=== PATIENT | female | born 1950 | race Two or more races ===

== ENCOUNTER 2016-10-13 12:01 | Emergency (ER) | payer OTHER ==
[2016-10-13 12:28] VITALS: BP 156/79; PULSE 59; TEMP 98; BMI 28.3
[2016-10-13] MEDS ORDERED: KETOROLAC TROMETHAMINE 60 MG/2 ML VIAL ONE (14:20)
[2016-10-13] MEDS: KETOROLAC TROMETHAMINE 60 MG/2 ML VIAL IM ONE (14:23)
--- NOTE | 2016-10-13 14:24 | PDOC ---
History of Present Illness - General Chief Complaint: Back Pain Stated Complaint: BACK PAIN Time Seen by Provider: 10/13/16 13:45 History Source: Patient Exam Limitations: No Limitations - History of Present Illness Initial Comments: 10/13/16 14:24 65 YR FEMALE WITH HISTORY of lower back pain and left side sciatica. Pt states 8 days ago had cortisone injection which helped for 2 days then pain came back. no saddle anesthesia no urine or bowel incontinence. Pt is able to urineate and have BM no distress. no abd pain or fever,. pt has pain to left buttock radiates to leg. Pt taking percocet and naprosyn at home with no relief. Pt states she has a small dog that she is cleaning up after often bending over. Occurred: reports: last week Severity: reports: moderate Pain Location: reports: back Past History - Past Medical History Allergies/Adverse Reactions: Allergies Allergy/AdvReac Type Severity Reaction Status Date / Time No Known Allergies Allergy Verified 10/13/16 12:24 Home Medications: Ambulatory Orders Cyclobenzaprine HCl [Flexeril 10 mg] 5 mg PO TID PRN #21 tablet 10/13/16 Losartan Potassium 25 mg PO DAILY 10/13/16 Methylprednisolone [Medrol Dose Mukesh] 4 mg PO ASDIR #21 tablet 10/13/16 Naproxen [Naprosyn -] 500 mg PO BID 10/13/16 Oxycodone HCl/Acetaminophen [Percocet 5-325 mg Tablet] 1 - 2 tab PO Q4H HTN: Yes Hypercholesterolemia: Yes Suicide Attempt (Hx): No Other medical history: herniated disc with left sciatica - Surgical History Cholecystectomy: Yes - Psycho/Social/Smoking Cessation Hx Anxiety: No Suicidal Ideation: No Smoking History: Never smoked Hx Alcohol Use: No Drug/Substance Use Hx: No Substance Use Type: None Trauma Specific PMHX - Complaint Specific PMHX Arthritis: No Back Injury: No Neck Injury: No Hx Sacro Iliac Joint Dysfunction: No Review of Systems - Review of Systems Able to Perform ROS?: No Is the patient limited Sinhala proficient: No Constitutional: No: Symptoms Reported HEENTM: No: Symptoms Reported Respiratory: No: Symptoms reported Cardiac (ROS): No: Symptoms Reported ABD/GI: No: Symptoms Reported : No: Symptoms Reported Musculoskeletal: Yes: See HPI, Back Pain *Physical Exam - Vital Signs Last Vital Signs Temp Pulse Resp BP Pulse Ox 98 F 59 L 16 156/79 99 10/13/16 12:25 10/13/16 12:25 10/13/16 12:25 10/13/16 12:25 10/13/16 12:25 - Physical Exam General Appearance: Yes: Nourished, Appropriately Dressed HEENT: positive: EOMI, SUSU, Normal ENT Inspection, TMs Normal, Pharynx Normal Neck: positive: Supple. negative: Tender lateral, Tender midline Respiratory/Chest: positive: Lungs Clear, Normal Breath Sounds Cardiovascular: positive: Regular Rhythm, Regular Rate Gastrointestinal/Abdominal: positive: Normal Bowel Sounds, Soft. negative: Tender Rectal Exam: positive: deferred Musculoskeletal: positive: Normal Inspection, Muscle Spasm (left lower lumbar spine paraspinal muscle), Other (SLR left leg pain at 45 degrees, nv intact sensation decreased to left lateral calf ). negative: CVA Tenderness, CVA Tenderness (R), CVA Tenderness (L), Decreased Range of Motion, Vertebral Tenderness Extremity: positive: Normal Capillary Refill, Normal Inspection, Normal Range of Motion Medical Decision Making - Medical Decision Making 10/13/16 14:27 cc: acute on chornic sciatica , low back pain no red flag signs will give toradol dc with medrol dose pack and flexeril, pt has failed narcotic and nsaids at home pt has no history of DM or renal insufficency *DC/Admit/Observation/Transfer Diagnosis at time of Disposition: Sciatica Qualifiers: Laterality: left Qualified Code(s): M54.32 - Sciatica, left side - Discharge Dispostion Disposition: HOME Condition at time of disposition: Good - Prescriptions Prescriptions: Cyclobenzaprine HCl [Flexeril 10 mg] 5 mg PO TID PRN #21 tablet PRN Reason: Muscle Spasms Methylprednisolone [Medrol Dose Mukesh] 4 mg PO ASDIR #21 tablet - Referrals Referrals: Sahil Mcgovern MD [Staff Physician] - - Patient Instructions Additional Instructions: take the muscle relaxant as prescribed do not drive, drink alcohol or operate machinery while taking flexeril take the medrol dose pack (steroid for pain and inflamation) as directed you can start the pack today follow with orthopedist or your doctor for follow up no heavy lifting or bending RETURN IF ANY NUMBNESS TO GROIN, UNABLE TO URINATE OR HAVE BOWEL MOVEMENT OR ANY INCONTINENCE OF BOWEL OR BLADDER
== END 2016-10-13 14:35 | disposition home or self-care (01) ==
LOC: JERFT 12:01
PROC: 3E0233Z Introduction of Anti-inflammatory into Muscle, Percutaneous Approach (ICD-10-PCS; principal; 2016-10-13)
DX: M54.32 Sciatica, left side (principal); I10 Essential (primary) hypertension; E78.00 Pure hypercholesterolemia, unspecified
CPT/HCPCS: 99281-25

== ENCOUNTER 2016-11-27 11:31 | Emergency (ER) | payer OTHER ==
[2016-11-27 11:39] VITALS: TEMP 97.8; BMI 27.4
[2016-11-27] MEDS ORDERED: SODIUM CHLORIDE 1,000 ML IV ONE (12:38)
[2016-11-27] MEDS ORDERED: METOCLOPRAMIDE HCL INJECTION 10 MG/2 ML VIAL IVPUSH ONE (12:38)
[2016-11-27] MEDS ORDERED: diazePAM 5 MG TABLET PO ONE (12:38)
--- NOTE | 2016-11-27 12:43 | PDOC ---
History of Present Illness - General History Source: Patient Exam Limitations: No Limitations - History of Present Illness Initial Comments: 11/27/16 13:41 The patient is a 66 year old female with a significant past medical history of chronic lower back pain, HTN, HCL, arthritis, and left leg sciatica, who presents to the ER with intermittent dizziness for one week. Patient states she started to feel dizziness one week ago while walking. She went to her PCP five days ago and was given antivertigo medication, Meclazine. Patient reports she stopped taking the Meclazine a few days ago after taking 3 pills because it had not resolved her symptoms. She states she lies down to relieve her symptoms. Patient says she has associated nausea. Patient says she has not eaten anything today. Patient says she had similar symptoms last year, resolved by Meclazine. Denies any headache, vision changes, neck pain, speech problems, back pain, focal weakness or numbness Denies hematuria, dysuria Denies abdominal pain, vomiting, diarrhea Denies changes in hearing, tinnitus Denies fever, chills, cough or recent uri symptoms PCP: In [facility] <Trinity Amado - Last Filed: 11/27/16 13:41> <El Trujillo - Last Filed: 11/27/16 14:40> - General Chief Complaint: Lightheaded Stated Complaint: PCP/LABS Time Seen by Provider: 11/27/16 11:48 Past History <Trinity Amado - Last Filed: 11/27/16 13:41> - Past Medical History HTN: Yes Hypercholesterolemia: Yes Suicide Attempt (Hx): No Other medical history: Vertigo - Surgical History Abdominal Surgery: No Appendectomy: No Cardiac Surgery: No Cholecystectomy: Yes Gastric Stapling: No GI Surgery: No Lung Surgery: No Neurologic Surgery: No - Psycho/Social/Smoking Cessation Hx Anxiety: No Suicidal Ideation: No Smoking History: Never smoked Hx Alcohol Use: No Drug/Substance Use Hx: No Substance Use Type: None <El Trujillo - Last Filed: 11/27/16 14:40> - Past Medical History Allergies/Adverse Reactions: Allergies Allergy/AdvReac Type Severity Reaction Status Date / Time No Known Allergies Allergy Verified 11/27/16 11:39 Home Medications: Ambulatory Orders Cyclobenzaprine HCl [Flexeril 10 mg] 5 mg PO TID PRN #21 tablet 10/13/16 Losartan Potassium 25 mg PO DAILY 10/13/16 Methylprednisolone [Medrol Dose Mukesh] 4 mg PO ASDIR #21 tablet 10/13/16 Naproxen [Naprosyn -] 500 mg PO BID 10/13/16 Oxycodone HCl/Acetaminophen [Percocet 5-325 mg Tablet] 1 - 2 tab PO Q4H Amlodipine Besylate 5 mg PO DAILY 11/27/16 Review of Systems - Review of Systems Able to Perform ROS?: Yes Comments:: 11/27/16 13:42 CONSTITUTIONAL: No reported: Fever, Chills, Diaphoresis, Generalized Weakness, Malaise, Loss of Appetite HEENT: No reported: Rhinorrhea, Nasal Congestion, Throat Pain, Throat Swelling, Difficulty Swallowing, Mouth Swelling, Ear Pain, Eye Pain, Visual Changes CARDIOVASCULAR: No reported: Chest Pain, Syncope, Palpitations, Irregular Heart Rate, Lightheadedness, Peripheral Edema RESPIRATORY: No reported: Cough, Shortness of Breath, SOB with Exertion, Orthopnea, Wheezing , Stridor, Hemoptysis GASTROINTESTINAL: No reported: Abdominal pain, Abdominal Distension, Nausea, Vomiting, Diarrhea, Constipation, Melena, Hematochezia GENITOURINARY: No reported: Dysuria, Frequency, Urgency, Hesitancy, Flank Pain, Genital Pain MUSCULOSKELETAL: No reported: Myalgia, Arthralgia, Joint Swelling, Back pain, Neck Pain SKIN: No reported: Rash, Itching, Pallor HEMEATOLOGIC/IMMUNOLOGIC: No reported: Easy Bleeding, Easy Bruising, Lymphadenopathy, Frequent infections ENDOCRINE: No reported: Unexplained Weight Gain, Unexplained Weight Loss, Heat Intolerance , Cold Intolerance NEUROLOGIC: Reported: (+) Vertigo, (+) dizziness No reported: Headache, Focal Weakness, Paresthesias, Lightheadedness, Unsteady Gait, Seizure, Mental Status Changes, Incontinence PSYCHIATRIC: No reported: Anxiety, Depression <Uts,Trinity - Last Filed: 11/27/16 13:41> *Physical Exam - Vital Signs Last Vital Signs Temp Pulse Resp BP Pulse Ox 97.8 F 57 L 20 136/71 99 11/27/16 11:36 11/27/16 11:36 11/27/16 11:36 11/27/16 11:36 11/27/16 11:36 - Physical Exam Comments: 11/27/16 13:42 GENERAL: The patient is awake, alert, and fully oriented, Nontoxic - in no acute distress. HEAD: Normocephalic, atraumatic. EYES: extraocular movements intact, sclera anicteric, conjunctiva clear. extinguishing orizontal nystagmus ENT: Normal voice, Moist mucous membranes. NECK: Normal range of motion, supple LUNGS: Breath sounds equal, clear to auscultation bilaterally. No wheezes, no rhonchi, no rales. HEART: Regular rate and rhythm, without murmur, rub or gallop. ABDOMEN: Soft, nontender, normoactive bowel sounds. No guarding, no rebound.No CVA tenderness EXTREMITIES: Normal range of motion, no edema. No clubbing or cyanosis. No cords, erythema, or tenderness. PSYCH: Normal mood, normal affect. SKIN: Warm, Dry, normal turgor NEURO: Mental status: The patient is oriented x3. Cranial nerves: Cranial nerves II through XII are intact Motor: The upper extremities are 5 over 5 in all muscle groups. The lower extremities are 5 over 5 in all muscle groups. Negative pronator drift Sensation: Sensation is intact to light touch throughout. romberg negative Cerebellar: Jxubdm-aqukuj-reup is normal in both upper extremities. Heel-knee- lopez is normal in both lower extremities. rapid alternating movements are normal. Reflexes: 2+ and symmetric in the upper and lower extremities. Gait: Normal. Heel and toe walking are normal. Tandem gait is normal. <Uts,Trinity - Last Filed: 11/27/16 13:41> - Vital Signs Last Vital Signs Temp Pulse Resp BP Pulse Ox 97.8 F 57 L 20 136/71 99 11/27/16 11:36 11/27/16 11:36 11/27/16 11:36 11/27/16 11:36 11/27/16 11:36 <El Trujillo - Last Filed: 11/27/16 14:40> Heart Score/ECG Review - ECG Impressions Comment:: 11/27/16 12:40 Twelve-lead EKG was performed and reviewed by me. There is normal sinus rhythm with a rate of 59 The intervals are normal. There is normal R wave progression There are no ST or T wave abnormalities. Impression: sinus bradycardia <Ronnie,El - Last Filed: 11/27/16 14:40> ED Treatment Course - LABORATORY CBC & Chemistry Diagram: 11/27/16 13:15 11/27/16 13:15 - ADDITIONAL ORDERS Additional order review: 11/27/16 13:15 RBC 4.78 MCV 83.0 MCHC 32.8 RDW 14.1 MPV 9.7 Neutrophils % 76.3 Lymphocytes % 14.9 Monocytes % 7.3 Eosinophils % 0.7 Basophils % 0.8 <Uts,Trinity - Last Filed: 11/27/16 13:41> - LABORATORY CBC & Chemistry Diagram: 11/27/16 13:15 11/27/16 13:15 <El Trujillo - Last Filed: 11/27/16 14:40> Medical Decision Making - Medical Decision Making 11/27/16 12:41 66y F hx of htn, hl, RA, sent to the ED by urgent care for evalution of persistent dizziness, pt endorses mild vertigo intermittently throughotut day, usually improves if she lays down. no headache, palpitations, neck pain, back pain, numbness, tingling weakness, dysarthria, vision changes. pts exam unremarkable including normal neuro exam and normal cerebellar exam suspect bppv will give valium as pt has not been improving with meclizine will give fluids for hydration will ck basic labs to r/o anemia, metabolic dernagement ekg to screen for arrythmia will reassess A portion of this note was documented by scribe services under my direction. I have reviewed the details of the note, within reason, and agree with the documentation with the following case summary and management plan written by me 11/27/16 14:38 pt feeling improved lbas reviewed and are unremarkble will dc the pt with pmd fu returnp recautions were discussed I discussed the physical exam findings, ancillary test results and final diagnoses with the patient. I answered all of the patient's questions. The patient was satisfied with the care received and felt comfortable with the discharge plan and treatment plan. The patient will call their primary care physician within 24 hours to arrange follow-up and will return to the Emergency Department with any new, persistent or worsening symptoms. <El Trujillo - Last Filed: 11/27/16 14:40> *DC/Admit/Observation/Transfer - Attestations Scribe Attestion: 11/27/16 13:43 Documentation prepared by Trinity Amado, acting as medical/surgery registered nurse for El Trujillo MD. <Trinity Amado - Last Filed: 11/27/16 13:41> - Discharge Dispostion Admit: No <El Trujillo - Last Filed: 11/27/16 14:40> Diagnosis at time of Disposition: Vertigo - Discharge Dispostion Disposition: HOME Condition at time of disposition: Improved - Referrals Referrals: Jabari Mendoza [Primary Care Provider] - - Patient Instructions Printed Discharge Instructions: DI for Vertigo Additional Instructions: Return to the emergency department immediately with ANY new, persistent or worsening symptoms. Make sure that you're staying well-hydrated. Take your meclizine if your feel any dizziness. You MUST call and follow up with your doctor tomorrow for further evaluation of your symptoms. Results were discussed with you. Please make sure your doctor reviews the results of your emergency evaluation. If you had any xrays during your visit, it was read preliminarily by myself, a Radiologist will review it and if there are any additional findings we will call you. Print Language: ANDORRAN
[2016-11-27 13:25] LABS: BASOPHIL 0.8 % (0-2.0); EOSINOPHIL 0.7 % (0-4.5); MCH 27.2 pg (25.7-33.7); MCHC 32.8 g/dl (32.0-36.0); MEAN PLT VOLUME 9.7 fl (7.5-11.1); NEUTROPHILS 76.3 % (42.8-82.8); PLATELET COUNT 258 K/MM3 (134-434); RDW 14.1 % (11.6-15.6); WHITE BLOOD COUNT 12.5 K/mm3 (4.0-10.0)
[2016-11-27] MEDS ORDERED: METOCLOPRAMIDE HCL INJECTION 10 MG/2 ML VIAL ONE (13:25)
[2016-11-27] MEDS ORDERED: diazePAM 5 MG TABLET ONE (13:25)
[2016-11-27 13:56] LABS: ANION GAP 9 (8-16); BILIRUBIN,TOTAL 0.4 mg/dL (0.2-1.0); CALCIUM 9.8 mg/dL (8.5-10.1); CO2 27 mmol/L (21-32); GLUCOSE,RANDOM 95 mg/dL (74-106); SGOT/AST 23 U/L (15-37); SGPT/ALT 33 U/L (12-78); TOT PROT 7.4 g/dl (6.4-8.2)
[2016-11-27 13:57] LABS: ALK PHOS 60 U/L (45-117)
[2016-11-27 14:05] LABS: URINE APPEARANCE CLEAR; URINE BILIRUBIN NEGATIVE (NEGATIVE); URINE BLOOD NEGATIVE (NEGATIVE); URINE COLOR YELLOW; URINE GLUCOSE (UA) NEGATIVE (NEGATIVE); URINE KETONE NEGATIVE (NEGATIVE); URINE LEUK ESTERASE NEGATIVE (NEGATIVE); URINE NITRITE NEGATIVE (NEGATIVE); URINE PROTEIN NEGATIVE (NEGATIVE); URINE UROBILINOGEN NEGATIVE E.U./dl (0.2-1.0)
[2016-11-27 14:59] VITALS: BP 146/78; PULSE 70
--- NOTE | 2016-11-28 10:18 | EKG ---
Test Reason : Blood Pressure : / mmHG Vent. Rate : 059 BPM Atrial Rate : 059 BPM P-R Int : 152 ms QRS Dur : 088 ms QT Int : 396 ms P-R-T Axes : 020 -22 037 degrees QTc Int : 392 ms POOR DATA QUALITY, INTERPRETATION MAY BE ADVERSELY AFFECTED SINUS BRADYCARDIA MINIMAL VOLTAGE CRITERIA FOR LVH, MAY BE NORMAL VARIANT NO PREVIOUS ECGS AVAILABLE Confirmed by DELORES FORBES MD ([id number]) on 11/28/2016 10:18:30 AM Referred By: Confirmed By:DELORES FORBES MD
== END 2016-11-27 14:57 | disposition home or self-care (01) ==
LOC: JER 11:31
PROC: 3E033GC Introduction of Other Therapeutic Substance into Peripheral Vein, Percutaneous Approach (ICD-10-PCS; principal; 2016-11-27)
DX: R42 Dizziness and giddiness (principal); M54.5 Low back pain; G89.29 Other chronic pain; I10 Essential (primary) hypertension; M54.32 Sciatica, left side; M12.9 Arthropathy, unspecified
CPT/HCPCS: 36415; 80053; 81003; 85025; 93005; 93010; 99283-25

== ENCOUNTER 2019-03-17 21:40 | Emergency (ER) | payer OTHER ==
[2019-03-17 22:00] VITALS: BP 164/65; PULSE 65; TEMP 97.7; BMI 29.9
--- NOTE | 2019-03-17 22:18 | PDOC ---
History of Present Illness - General Chief Complaint: Pain Stated Complaint: TRIGEMINAL NEURALGIA OF R SIDE FACE Time Seen by Provider: 03/17/19 22:15 Past History - Past Medical History Allergies/Adverse Reactions: Allergies Allergy/AdvReac Type Severity Reaction Status Date / Time No Known Allergies Allergy Verified 11/27/16 11:39 Home Medications: Ambulatory Orders Cyclobenzaprine HCl [Flexeril 10 mg] 5 mg PO TID PRN #21 tablet 10/13/16 Losartan Potassium 25 mg PO DAILY 10/13/16 Methylprednisolone [Medrol Dose Mukesh] 4 mg PO ASDIR #21 tablet 10/13/16 Naproxen [Naprosyn -] 500 mg PO BID 10/13/16 Oxycodone HCl/Acetaminophen [Percocet 5-325 mg Tablet] 1 - 2 tab PO Q4H Amlodipine Besylate 5 mg PO DAILY 11/27/16 HTN: Yes Hypercholesterolemia: Yes - Surgical History Abdominal Surgery: No Appendectomy: No Cardiac Surgery: No Cholecystectomy: Yes Gastric Stapling: No GI Surgery: No Lung Surgery: No Neurologic Surgery: No - Psycho Social/Smoking Cessation Hx Smoking History: Never smoked Hx Alcohol Use: No Drug/Substance Use Hx: No Substance Use Type: None *Physical Exam - Vital Signs Last Vital Signs Temp Pulse Resp BP Pulse Ox 97.7 F 65 20 164/65 99 03/17/19 21:45 03/17/19 21:45 03/17/19 21:45 03/17/19 21:45 03/17/19 21:45 Discharge - Follow up/Referral Referrals: Jabari Mendoza [Primary Care Provider] - - Patient Discharge Instructions - Post Discharge Activity
[2019-03-17] MEDS ORDERED: KETOROLAC TROMETHAMINE 15 MG/ML VIAL IM ONE (22:24)
--- NOTE | 2019-03-17 22:29 | PDOC ---
Documentation entered by Mj Shah SCRIBE, acting as scribe for Lena Woods MD. Lena Woods MD: This documentation has been prepared by the Pablo giles Xhesika, SCRIBE, under my direction and personally reviewed by me in its entirety. I confirm that the documentation accurately reflects all work, treatment, procedures, and medical decision making performed by me. 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 Echeverria (neurologist) on 03/06/19, was diagnosed with Trigeminal neuralgia and was prescribed carbamazepine, with no relief of symptoms. Patient notes she has a follow up appointment with Dr. Echeverria in April, however, the pain was severe which prompted her arrival to the ED. The patient denies any recent ear infections, fever, chills, nausea, chest pain, SOB, palpitations, dizziness, weakness, N, V, D, abdominal pain, or any changes in medication. No sick contacts or travel. Allergies: None Past Medical History: Noted in HPI Social history: Lives with family. No tobacco, ETOH or drug use. Surgical history: None reported Meds: as documented in EMR 03/17/19 22:43 Past History - Past Medical History Allergies/Adverse Reactions: Allergies Allergy/AdvReac Type Severity Reaction Status Date / Time No Known Allergies Allergy Verified 11/27/16 11:39 Home Medications: Ambulatory Orders Cyclobenzaprine HCl [Flexeril 10 mg] 5 mg PO TID PRN #21 tablet 10/13/16 Losartan Potassium 25 mg PO DAILY 10/13/16 Methylprednisolone [Medrol Dose Mukesh] 4 mg PO ASDIR #21 tablet 10/13/16 Naproxen [Naprosyn -] 500 mg PO BID 10/13/16 Oxycodone HCl/Acetaminophen [Percocet 5-325 mg Tablet] 1 - 2 tab PO Q4H Amlodipine Besylate 5 mg PO DAILY 11/27/16 HTN: Yes Hypercholesterolemia: Yes - Surgical History Abdominal Surgery: No Appendectomy: No Cardiac Surgery: No Cholecystectomy: Yes Gastric Stapling: No GI Surgery: No Lung Surgery: No Neurologic Surgery: No - Psycho Social/Smoking Cessation Hx Smoking History: Never smoked Hx Alcohol Use: No Drug/Substance Use Hx: No Substance Use Type: None Review of Systems - Review of Systems Able to Perform ROS?: Yes Comments:: 03/17/19 22:32 Constitutional: no fevers or chills. No weakness HEENT: + right side of face pain. no headache or dizziness. No congestion. No visual/hearing disturbances. CVS: no cp or syncope. Resp: no sob. No cough. Gastrointestinal: no abdominal pain, nausea or vomiting. Genitourinary: no urinary sx, hematuria. MUSCULOSKELETAL: No joint pain and swelling. No neck or back pain. SKIN: no redness or skin changes, no discharge, no rash. No wounds. Hematologic: no easy bruising/bleeding. NEUROLOGIC: No headache, dizziness, LOC or altered mental status. No weakness, numbness or tingling. Psych: no anxiety or depression Allergic/Immunologic: no allergies All other systems reviewed and negative, or as documented in HPI. *Physical Exam - Vital Signs Last Vital Signs Temp Pulse Resp BP Pulse Ox 97.7 F 65 20 164/65 99 03/17/19 21:45 03/17/19 21:45 03/17/19 21:45 03/17/19 21:45 03/17/19 21:45 - Physical Exam Comments: 03/17/19 22:32 General: Well appearing, awake and alert, NAD. HEENT: NCAT, PERRL, EOMI, clear conjunctiva, anicteric, moist mucus membranes, clear oropharynx, no oral lesions.. bilateral T.M clear Neck: neck supple, FROM Resp: normal and even respirations, no respiratory distress CVS: 2+ peripheral pulses throughout, no peripheral edema Abdomen: soft, NTND, no rebound or guarding. No CVAT. Back: nontender, normal inspection and ROM MSK: no edema, ZAIDI x4, ROM intact. No clubbing or cyanosis. normal bulk and tone. Extremities: no calf tenderness Neuro: Alert, oriented to person, time and place. CN II-XII grossly intact. 5/5 masseters, V1-3 intact grossly to light touch. Strength prox and distally 5/5 throughout. Sensation grossly intact to light touch. ZAIDI x4. No cerebellar signs , no dysmetria, bilateral finger to nose and heel to lopez equal and symmetric. Speech clear. Psych: Calm and cooperative Skin: warm and well perfused, cap refill <2 sec, normal color 03/17/19 22:50 Medical Decision Making - Medical Decision Making 03/17/19 22:55 Vital Signs Temp Pulse Resp BP Pulse Ox 97.7 F 65 20 164/65 99 03/17/19 21:45 03/17/19 21:45 03/17/19 21:45 03/17/19 21:45 03/17/19 21:45 vs reviewed wnl, neuro intact no neuro deficits focally, well appearing no s/s to suggest CVA/central etiology. no indication for imaging also with known dx trigeminal neuralgia, symptoms going with sx and findings. will treat toradal c/w meds carbamazapine and oxycodone as prescribed f/u Dr Echeverria, neurologist for further management, which pt has appt with in April. return precautions DC stable condition Discharge - Discharge Information Problems reviewed: Yes Clinical Impression/Diagnosis: Trigeminal neuralgia of right side of face Condition: Stable Disposition: HOME - Admission No - Follow up/Referral Referrals: Jabari Mendoza [Primary Care Provider] - Sahil Echeverria MD [Staff Physician] - - Patient Discharge Instructions Patient Printed Discharge Instructions: DI for Trigeminal Neuralgia Additional Instructions: 1) Please follow-up with your primary care doctor in the next 1-2 days. Please call tomorrow for for any urgent issues. you should follow up with the neurologist as previously discussed, Dr Echeverria we will also give you additional referrals to expedite your appointment. this is most likely the nerve inflammation called trigeminal neuralgia If you have any worsening of symptoms or any other concerns please return to the ED immediately. Return if worsening symptoms including fevers, headache, vomiting, visual or hearing disturbances, abdominal pain, chest pain, shortness of breath, syncope, dehydration, inability to take things by mouth/vomiting, altered mental status, or worsening concerning symptoms. Please continue taking your home medications as directed. your medications on discharge include the carbamazepine twice a day and oxycodone-tylenol twice a day for your pain you can additionally take motrin/aleve/advil as directed as needed for the pain. you should continue taking your usual home medications as prescribed Stay well hydrated and rest adequately. Make an appointment with Neurologist. If you cannot follow-up with your primary care doctor please return to the ED 1) Ally un seguimiento con alicea mdico de atencin primaria en los prximos 1-2 sosa. Llame maana para cualquier problema urgente. debe hacer un seguimiento con el neurlogo emery se discuti anteriormente, Dr. Juwan Velez le daremos referencias adicionales para agilizar alicea refugio. esta es muy probablemente la inflamacin del nervio llamada neuralgia del trigmino Si tiene algn empeoramiento de los sntomas o cualquier otra inquietud, regrese al servicio de urgencias de inmediato. Regrese si empeora los sntomas, emery fiebre, dolor de tim, vmitos, trastornos visuales o auditivos, dolor abdominal, dolor en el pecho, falta de aliento, sncope, deshidratacin, incapacidad para gunner cosas por la boca / vmitos, estado mental alterado o empeoramiento de los sntomas. Contine tomando sue medicamentos caseros segn las indicaciones. Sue medicamentos al donna incluyen la carbamazepina dos veces al da y oxicodona- tylenol dos veces al da para el dolor. Agustin puede gunner motrin / aleve / advil segn las indicaciones segn sea necesario para el dolor. debe continuar tomando sue medicamentos caseros habituales segn lo prescrito Mantngase gwendolyn hidratado y descanse adecuadamente. Ally spenser refugio con el neurlogo. Si no puede hacer un seguimiento con alicea mdico de atencin primaria, regrese al servicio de urgencias Print Language: ECUADOREAN - Post Discharge Activity
[2019-03-17] MEDS ORDERED: KETOROLAC TROMETHAMINE 30 MG/1 ML VIAL ONE (22:34)
== END 2019-03-17 23:23 | disposition home or self-care (01) ==
LOC: JER 21:40
PROC: 3E0233Z Introduction of Anti-inflammatory into Muscle, Percutaneous Approach (ICD-10-PCS; principal; 2019-03-17)
DX: G50.0 Trigeminal neuralgia (principal); I10 Essential (primary) hypertension; E78.00 Pure hypercholesterolemia, unspecified; M54.5 Low back pain; G89.29 Other chronic pain; Z86.69 Personal history of other diseases of the nervous system and sense organs; M12.9 Arthropathy, unspecified
CPT/HCPCS: 96372; 99281-25

== ENCOUNTER 2020-02-01 22:15 | Inpatient (IN) | payer OTHER ==
[2020-02-01 22:46] VITALS: BMI 31.6
--- NOTE | 2020-02-02 00:36 | PDOC ---
History of Present Illness - General Chief Complaint: Pain Stated Complaint: MANDIBULAR PAIN/VOMITING Time Seen by Provider: 02/02/20 00:35 History Source: Patient Exam Limitations: No Limitations - History of Present Illness Initial Comments: 02/02/20 01:04 69yF w PMHx trigeminal neuralgia, HTN presenting w chronic worsening R mandibular pain, band like headache, 3d constipation, 1d vomiting and mild diffuse abd pain. Has been evaluated in past by Dr Echeverria neurology for tr igeminal neuralgia, currently talking w surgeon considering surgical option. Taking cyclobenzaprine, gabapentin w minimal relief. Denies fever, chest pain, SOB. Past History - Medical History Allergies/Adverse Reactions: Allergies Allergy/AdvReac Type Severity Reaction Status Date / Time No Known Allergies Allergy Verified 02/01/20 22:42 Home Medications: Ambulatory Orders Cyclobenzaprine HCl [Flexeril 10 mg] 5 mg PO TID PRN #21 tablet 10/13/16 Losartan Potassium 25 mg PO DAILY 10/13/16 Methylprednisolone [Medrol Dose Mukesh] 4 mg PO ASDIR #21 tablet 10/13/16 Naproxen [Naprosyn -] 500 mg PO BID 10/13/16 Oxycodone HCl/Acetaminophen [Percocet 5-325 mg Tablet] 1 - 2 tab PO Q4H 10/13/16 Amlodipine Besylate 5 mg PO DAILY 11/27/16 COPD: No HTN: Yes Hypercholesterolemia: Yes - Surgical History Abdominal Surgery: No Appendectomy: No Cardiac Surgery: No Cholecystectomy: Yes Gastric Stapling: No GI Surgery: No Lung Surgery: No Neurologic Surgery: No - Psycho-Social/Smoking History Smoking History: Never smoked - Substance Abuse Hx (Audit-C & DAST Scrn) How often the patient has a drink containing alcohol: Never Score: In Men: 4 or > Positive; In Women: 3 or > Positive: 0 Screen Result (Pos requires Nsg. Audit-10AR): Negative Review of Systems - Review of Systems Constitutional: No: Chills, Fever HEENTM: No: Eye Pain, Recent change in vision Respiratory: No: Cough, Shortness of Breath Cardiac (ROS): No: Chest Pain, Palpitations ABD/GI: Yes: Constipated, Nausea, Vomiting. No: Abdominal Distended, Diarrhea : No: Burning, Dysuria Musculoskeletal: No: Back Pain, Joint Pain Integumentary: No: Bruising, Flushing Neurological: Yes: Headache. No: Seizure Psychiatric: No: Anxiety, Depression Endocrine: No: Intolerance to Cold, Intolerance to Heat Hematologic/Lymphatic: No: Anemia, Blood Clots *Physical Exam - Vital Signs Last Vital Signs Temp Pulse Resp BP Pulse Ox 97 F L 96 H 18 160/90 99 02/01/20 22:18 02/01/20 22:18 02/01/20 22:18 02/01/20 22:18 02/01/20 22:18 - Physical Exam General Appearance: Yes: Nourished, Appropriately Dressed, Moderate Distress HEENT: positive: EOMI, SUSU, Normal Voice, Hearing Grossly Normal, Other (asymmetric face, tender R mandible, no tongue swelling, normal oropharynx). negative: Scleral Icterus (R), Scleral Icterus (L) Neck: positive: Supple. negative: Tender, Rigid, Lymphadenopathy (R), Ly mphadenopathy (L) Respiratory/Chest: positive: Lungs Clear, Normal Breath Sounds. negative: Chest Tender, Respiratory Distress Cardiovascular: positive: Regular Rhythm, Regular Rate, S1, S2. negative: Murmur Gastrointestinal/Abdominal: positive: Normal Bowel Sounds, Tender (mild diffuse), Flat, Soft. 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 negative: Numbness, Sensory Deficit, Confused, Disoriented ED Treatment Course - LABORATORY CBC & Chemistry Diagram: 02/02/20 02:02 02/02/20 02:02 Medical Decision Making - Medical Decision Making 02/02/20 03:52 EKG - NSR, L axis deviation, HR 69, QTc 428, TWI aVL, no priors CXR - patchy shelby infiltrates Head/face/sinus CT - no fx/bleed, Metal density in anterior segment of L globe trop 0.13, WBC 12 w L shift --- 69yF w PMHx trigeminal neuralgia, HTN presenting w chronic worsening R mandibular pain, band like headache, 3d constipation, 1d vomiting and mild diffuse abd pain. Has NSTEMI (trop 0.13, NSR EKG) Pain likely d/t trigeminal neuralgia No fx/bleed on CT. Metal density in anterior segment of L globe. Has multiple surgeries on L eye for glaucoma and cataracts, didnt know before that she had metal in eye, normal visual caraballo. Has patchy infiltrates on CXR, minimally elevated LDH and ESR, normal ferritin, low concern for covid. Given tylenol, colace, pepcid, maalox, 1L NS, reglan, 324 aspirin, plavix, 80 lovenox Admitted tele for NSTEMI (trop 0.13 w atypical cardiac symptom of vomiting) PCP [facility] Dis[facility] - Discharge Information Problems reviewed: Yes Clinical Impression/Diagnosis: Trigeminal neuralgia of right side of face, NSTEMI (non-ST elevated myocardial infarction) Foreign body, eye Qualifiers: Encounter type: initial encounter Laterality: left Qualified Code(s): T15.92XA - Foreign body on external eye, part unspecified, left eye, initial encounter Condition: Stable - Follow up/Referral - Patient Discharge Instructions - Post Discharge Activity
--- NOTE | 2020-02-02 01:12 | PDOC ---
Attending Attestation - Resident Resident Name: AmritSalazar - ED Attending Attestation I have performed the following: I have examined & evaluated the patient, The case was reviewed & discussed with the resident, I agree w/resident's findings & plan - HPI HPI: 02/02/20 06:07 Pt comes with multiple complaints. She has trigeminal neuralgia on the right side of her face, which results in so much pain that she cannot eat, then she feels weak and constipated and she has dizziness and nausea. Pt states that she has a hx of HTN and high cholesterol. She is 69 yo. She is not obese and she has a fam hx of CAD. Pt has no other risk factor for CAD. Pt has no fevers or chills. - Physicial Exam PE: 02/02/20 06:10 Agree with resident exam Pt has no fever or chills. She has facial discomfort Pt has no eye pain. She had glaucoma surgery on the left eye as well as cataract operations bilat. She has a vertical metallic object on her lft iris at 12 o'clock. Likely due to her surgery on that eye. Pt has no chemosis, redness, pain in the left eye. heart and lungs normal abd soft NT ND normal neuro exam - Medical Decision Making 02/02/20 01:13 Pt had a normal brain MRI in Apr 2019, so we will not image her bvrain today for her headache/ chronic trigeminal neuralgia 02/02/20 05:41 Patient Name: GUERO BARRIENTOS THIS IS A PRELIMINARY REPORT DATE OF SERVICE: 2020-02-02 03:52:47 IMAGES: [id number] EXAM: HEAD CT WITHOUT CONTRAST HISTORY: Patient fell COMPARISON: None. FINDINGS: No acute intracranial abnormality. No hemorrhage. Osseous structures are intact. 02/02/20 05:42 Patient Name: GUERO BARRIENTOS THIS IS A PRELIMINARY REPORT DATE OF SERVICE: 2020-02-02 03:55:45 IMAGES: 460 EXAM: FACIAL BONES CT W/O CONTRAST HISTORY: Patient fell. Facial pain COMPARISON: None. FINDINGS: Negative for orbital or facial fracture. The globes and orbits are intact although there is a metal density in the anterior segment of the left globe. Surgical? Correlate with history. 02/02/20 06:12 Pt has elevated trop with her risk factors and nausea and dizzines, we will admit her for observation on telemetry unit. Heart Score/ECG Review - History History: Slightly suspicious - Electrocardiogram EKG: Normal - Age Age: >/= 65 - Risk Factors Risk Factors Heart Score: Yes Hx Hypercholesterolemia, Yes Hx Hypertension, Yes Positive family hx of cardiac disease Based on the list above the patient has:: >/=3 risk factors or Hx atherosclerotic disease - Troponin Troponin: 1-3x normal limit - Score Heart Score - Total: 5 - ECG Intrepretation Rhythm: Regular Rhythm - [place]: Normal - P and MI Delta Wave(s) Present: No WPW: No - ST and T Early Repolarization: No Non Specific ST-T Wave changes: No Flattened T Waves: No Prolonged Q-T Interval: No - ECG Impressions Normal ECG: Yes Non-specific ST Elevation: No Ischemic Changes: No Torsades sharee Pointes: No WPW: No Discharge - Discharge Information Problems reviewed: Yes Clinical Impression/Diagnosis: Trigeminal neuralgia of right side of face, NSTEMI (non-ST elevated myocardial infarction) Foreign body, eye Qualifiers: Encounter type: initial encounter Laterality: left Qualified Code(s): T15.92XA - Foreign body on external eye, part unspecified, left eye, initial encounter Condition: Stable - Follow up/Referral - Patient Discharge Instructions - Post Discharge Activity
[2020-02-02] MEDS ORDERED: SODIUM CHLORIDE 0.9% 500 ML INFUS.BAG IV ONE (01:14)
[2020-02-02] MEDS ORDERED: ACETAMINOPHEN 1000 MG/100 ML VIAL (NON FORMULARY) IVPB ONE (01:14)
[2020-02-02] MEDS ORDERED: METOCLOPRAMIDE HCL INJECTION 10 MG/2 ML VIAL IVPB ONE (01:14)
[2020-02-02] MEDS ORDERED: FAMOTIDINE 20 MG/50 ML IVPB 20 MG/50 ML MG IVPB ONE ×2 (01:14→02:07)
[2020-02-02] MEDS ORDERED: DOCUSATE SODIUM 100 MG CAPSULE (FP) PO ONE ×2 (01:14→02:07)
[2020-02-02] MEDS ORDERED: POLYETHYLENE GLYCOL 3350 119 GM BTL PO ONE (01:15)
[2020-02-02] MEDS ORDERED: ACETAMINOPHEN INJECTION 100 ML IVPB ONE (02:07)
[2020-02-02] MEDS ORDERED: METOCLOPRAMIDE HCL INJECTION 10 MG/2 ML VIAL ONE (02:07)
[2020-02-02 02:15] LABS: BASO % 0.3 % (0-2.0); EOS % 0.1 % (0-4.5); LYMPH % 6.5 % (8-40); MCHC 33.3 g/dl (32.0-36.0); MEAN CELL VOLUME 84.3 fl (80-96); MEAN PLT VOLUME 9.5 fl (7.5-11.1); MONO % 4.1 % (3.8-10.2); PLATELET COUNT 287 K/MM3 (134-434); RBC 4.63 M/mm3 (3.60-5.2); RDW 13.3 % (11.6-15.6); WHITE BLOOD COUNT 12.4 K/mm3 (4.0-10.0)
[2020-02-02] MEDS ORDERED: ASPIRIN 81 MG CHEWABLE TABLETS PO ONE ×2 (02:48→03:37)
[2020-02-02 02:58] LABS: BILIRUBIN,TOTAL 0.3 mg/dL (0.2-1); CALCIUM 9.9 mg/dL (8.5-10.1); CREATININE 0.9 mg/dL (0.55-1.3); TOT PROT 7.8 g/dl (6.4-8.2)
[2020-02-02 03:16] LABS: BLOOD UREA NITROGEN 12.2 mg/dL (7-18)
[2020-02-02] MEDS ORDERED: ASPIRIN 81 MG CHEWABLE TABLETS ONE ×3 (05:09→05:53)
[2020-02-02] MEDS ORDERED: morphine CARPU-JECT 2 MG/1 ML DISP.SYRIN IVPUSH ONE (05:26)
[2020-02-02] MEDS ORDERED: CLOPIDOGREL BISULFATE 300 MG TABLET PO ONE (05:57)
[2020-02-02] MEDS ORDERED: ENOXAPARIN NA (PORCINE) 80 MG/0.8 ML DISP.SYRIN SQ ONE ×2 (05:57→06:06)
[2020-02-02] MEDS ORDERED: CLOPIDOGREL BISULFATE 300 MG TABLET ONE (06:05)
[2020-02-02] MEDS ORDERED: MORPHINE SULFATE 2 MG/ML VIAL ONE (06:05)
[2020-02-02] MEDS: LOSARTAN POTASSIUM 25 MG TABLET PO SCH (11:02)
[2020-02-02] MEDS: amLODIPine BESYLATE 5 MG TABLET (FP) PO SCH (11:02)
--- NOTE | 2020-02-02 11:03 | HP ---
CHIEF COMPLAINT: R TMJ pain with dizziness PCP: HISTORY OF PRESENT ILLNESS: This is a 69 year old female with PMH of Trigeminal Neuralgia and HTN. She presented to the ER with complaints of dizziness and R sided TMJ pain. She states the pain began on Tuesday, sudden in onset, 10/10 in severity, constant, sharp in nature, and causing her to avoid eating due to the pain. She also reports associated dizziness and diplopia that began yesterday, constipation since 3 days, and 1 episode of vomiting yesterday. She denies any fevers, chills, difficulty swallowing, headaches, SOB, chest pain, urinary complaints. She was diagnosed with TG in September, and was started on Carbamezapine, Gabapentin, Percocet for pain control. Her neurologist is Dr. Alex Dent and neurosurgeon is Dr. Lombardo . She has had L eye surgery for glaucoma and cataracts in the past, has family history of DM in several members, [place] in father at 80YO, Breast/Colon CA in sisters. She is retired, lives alone, does not smoke, drink, or use any illicit substances. ER course was notable for: (1) Trop 0.15 (2) EKG NSR (3) ASA, Plavix Recent Travel: denies PAST MEDICAL HISTORY: See HPI PAST SURGICAL HISTORY: See HPI Social History: See HPI Allergies No Known Allergies Allergy (Verified 02/01/20 22:42) HOME MEDICATIONS: Home Medications Medication Instructions Recorded Cyclobenzaprine HCl [Flexeril 10 5 mg PO TID PRN #21 tablet 10/13/16 mg] Losartan Potassium 25 mg PO DAILY 10/13/16 Methylprednisolone [Medrol Dose 4 mg PO ASDIR #21 tablet 10/13/16 Mukesh] Naproxen [Naprosyn -] 500 mg PO BID 10/13/16 Oxycodone HCl/Acetaminophen 1 - 2 tab PO Q4H 10/13/16 [Percocet 5-325 mg Tablet] Amlodipine Besylate 5 mg PO DAILY 11/27/16 REVIEW OF SYSTEMS CONSTITUTIONAL: Absent: fever, chills, diaphoresis, generalized weakness, malaise, loss of appetite, weight change HEENT: Absent: rhinorrhea, nasal congestion, throat pain, throat swelling, difficulty swallowing, mouth swelling, ear pain, eye pain, visual changes CARDIOVASCULAR: Absent: chest pain, syncope, palpitations, irregular heart rate, lightheadedn ess, peripheral edema RESPIRATORY: Absent: cough, shortness of breath, dyspnea with exertion, orthopnea, wheezing, stridor, hemoptysis GASTROINTESTINAL: Absent: abdominal pain, abdominal distension, nausea, vomiting, diarrhea, constipation, melena, hematochezia GENITOURINARY: Absent: dysuria, frequency, urgency, hesitancy, hematuria, flank pain, genital pain MUSCULOSKELETAL: Absent: myalgia, arthralgia, joint swelling, back pain, neck pain SKIN: Absent: rash, itching, pallor HEMATOLOGIC/IMMUNOLOGIC: Absent: easy bleeding, easy bruising, lymphadenopathy, frequent infections ENDOCRINE: Absent: unexplained weight gain, unexplained weight loss, heat intolerance, cold intolerance NEUROLOGIC: Absent: headache, focal weakness or paresthesias, dizziness, unsteady gait, seizure, mental status changes, bladder or bowel incontinence PSYCHIATRIC: Absent: anxiety, depression, suicidal or homicidal ideation, hallucinations. PHYSICAL EXAMINATION Vital Signs - 24 hr 02/01/20 02/02/20 22:18 08:07 Temperature 97 F L Pulse Rate 96 H Pulse Rate [ 63 Left Radial] Respiratory 18 18 Rate Blood Pressure 160/90 Blood Pressure 156/74 [Right Arm] O2 Sat by Pulse 99 100 Oximetry (%) GENERAL: Awake, alert, and fully oriented, in no acute distress. HEAD: R TMJ tender to palpation EYES: Diplopia, reduced peropheral field, EOM intact without pain on movement EARS, NOSE, THROAT: Ears normal, nares patent, oropharynx clear without exudates. Moist mucous membranes. NECK: Normal range of motion, supple without lymphadenopathy, JVD, or masses. LUNGS: Breath sounds equal, clear to auscultation bilaterally. No wheezes, and no crackles. No accessory muscle use. HEART: Holosystolic murmur 3/6 LSB, regular rhythm ABDOMEN: Soft, nontender, not distended, normoactive bowel sounds, no guarding, no rebound, no masses. No hepatomegaly or splenomegaly. MUSCULOSKELETAL: Normal range of motion at all joints. No bony deformities or tenderness. No CVA tenderness. UPPER EXTREMITIES: 2+ pulses, warm, well-perfused. No cyanosis. No clubbing. No peripheral edema. LOWER EXTREMITIES: 2+ pulses, warm, well-perfused. No calf tenderness. No peripheral edema. NEUROLOGICAL: Cranial nerves II-XII intact. Normal speech. Normal gait. PSYCHIATRIC: Cooperative. Good eye contact. Appropriate mood and affect. SKIN: Warm, dry, normal turgor, no rashes or lesions noted, normal capillary refill. Laboratory Results - last 24 hr 02/02/20 02/02/20 02/02/20 02:02 02:02 02:02 WBC 12.4 H RBC 4.63 Hgb 13.0 Hct 39.0 MCV 84.3 MCH 28.0 MCHC 33.3 RDW 13.3 Plt Count 287 MPV 9.5 Absolute Neuts (auto) 11.1 H Neutrophils % 89.0 H Lymphocytes % 6.5 L D Monocytes % 4.1 Eosinophils % 0.1 D Basophils % 0.3 Nucleated RBC % 0 Sodium 130 L Potassium 5.0 Chloride 96 L Carbon Dioxide 25 Anion Gap 9 BUN 12.2 Creatinine 0.9 Est GFR (CKD-EPI)AfAm 75.61 Est GFR (CKD-EPI)NonAf 65.24 Random Glucose 136 H Calcium 9.9 Iron 50 TIBC 341 Iron Saturation 14 L Unsaturated IBC 291 H Ferritin 329.9 Total Bilirubin 0.3 AST 40 H ALT 41 Alkaline Phosphatase 182 H LD Total 253 H Creatine Kinase 93 Troponin I 0.13 H C-Reactive Protein 0.7 H Total Protein 7.8 Albumin 4.0 Lipase 67 L 02/02/20 05:35 WBC RBC Hgb Hct MCV MCH MCHC RDW Plt Count MPV Absolute Neuts (auto) Neutrophils % Lymphocytes % Monocytes % Eosinophils % Basophils % Nucleated RBC % Sodium Potassium Chloride Carbon Dioxide Anion Gap BUN Creatinine Est GFR (CKD-EPI)AfAm Est GFR (CKD-EPI)NonAf Random Glucose Calcium Iron TIBC Iron Saturation Unsaturated IBC Ferritin Total Bilirubin AST ALT Alkaline Phosphatase LD Total Creatine Kinase Troponin I 0.15 H C-Reactive Protein Total Protein Albumin Lipase ASSESSMENT/PLAN: 69 year old female with PMH of Trigeminal Neuralgia and HTN. She presented to the ER with complaints of dizziness and R sided TMJ pain, was found to have Trop 0.15, admitted for TN and ACS r/o #ACS r/o - EKG NSR, Trop 0.13 -> 0.15 -> 0.10 downtrending - Cardio consult: Demand ischemia 2/2 HTN, no need for therapeutic AC - Echo ordered as per Cardio - ASA81 started - Tele monitoring #TG - Neuro consult placed - Continue home Carbamezapine, Gabapentin, Percocet for pain control #CAP? - WBC 12.4 with RLL early infiltrate on CXR, unlikely CAP but will start coverrage and repeat CXR in AM - Will start Ceft/Azithro #Hx of HTN - Continue home Norvasc 5mg #FEN - N/S @ 75 - Na controlled diet #Prophylaxis - Lovenox #Dispo - Monitor in Tele until Echo ATTENDING PHYSICIAN STATEMENT I saw and evaluated the patient. I reviewed the resident's note and discussed the case with the resident. I agree with the resident's findings and plan as documented. SUBJECTIVE: OBJECTIVE: ASSESSMENT AND PLAN:
[2020-02-02] MEDS ORDERED: oxyCODONE HCL 5 MG TABLET PO PRN (11:15)
[2020-02-02] MEDS ORDERED: ACETAMINOPHEN 325 MG TABLET (FP) PO PRN ×2 (11:15)
--- NOTE | 2020-02-02 11:56 | CON.CARD ---
Consult Consult Specialty:: Cardiology Referred by:: Hospitalist Medicine Reason for Consultation:: Demand ischemia - History of Present Illness Chief Complaint: Right facial pain 2/2 trigeminal neuralgia History of Present Illness: Guero Bailey a 69 year oldfemalewith h/o HTN right facial pain consistent with trigeminal neuralgia and has had consultation with Dr. Grupo Martinez neurosurgery at [facility] regarding refractory symptoms despite escalating doses of gabapentin, carbamezepine and percocet, he last spoke with her 01/30/2020 and discussed open surgery with retrosigmoid craniectomy for microvascular decompression vs gamma knife radiosurgery which typically takes 1-2 months to work and has scheduled televist Tuesday to discuss clinical response with meds and plans. She presented to the ER with complaints of dizziness and severe R sided facial pain, constant, sharp in nature, and causing her to avoid eating due to the pain. She also reports associated dizziness and diplopia that began yesterday. Demand ischemia in context of elevated BP is noted, she denies chest pain, dyspnea, near or true syncope, orthopnea, PND or LE edema. - History Source History Provided By: Patient Limitations to Obtaining History: No Limitations - Alcohol/Substance Use Hx Alcohol Use: No - Smoking History Smoking history: Never smoked Home Medications - Allergies Allergies/Adverse Reactions: Allergies Allergy/AdvReac Type Severity Reaction Status Date / Time No Known Allergies Allergy Verified 02/01/20 22:42 - Home Medications Home Medications: Ambulatory Orders Cyclobenzaprine HCl [Flexeril 10 mg] 5 mg PO TID PRN #21 tablet 10/13/16 Losartan Potassium 25 mg PO DAILY 10/13/16 Methylprednisolone [Medrol Dose Mukesh] 4 mg PO ASDIR #21 tablet 10/13/16 Naproxen [Naprosyn -] 500 mg PO BID 10/13/16 Oxycodone HCl/Acetaminophen [Percocet 5-325 mg Tablet] 1 - 2 tab PO Q4H 10/13/16 Amlodipine Besylate 5 mg PO DAILY 11/27/16 Review of Systems - Review of Systems Gastrointestinal: reports: Constipation Vital Signs: Vital Signs Temperature 97 F L 02/01/20 22:18 Pulse Rate 63 02/02/20 08:07 Respiratory Rate 18 02/02/20 08:07 Blood Pressure 156/74 02/02/20 08:07 O2 Sat by Pulse Oximetry (%) 100 02/02/20 08:07 Constitutional: Yes: No Distress, Calm Neck: Yes: Supple Respiratory: Yes: Regular, CTA Bilaterally Gastrointestinal: Yes: Soft, Hypoactive Bowel Sounds Cardiovascular: Yes: Regular Rate and Rhythm JVD: No Carotid Bruit: No Heart Sounds: Yes: S1, S2 Edema: No Neurological: Yes: Lethargy - Other Data Labs, Other Data: CBC, BMP 02/02/20 02:02 02/02/20 02:02 Troponin, BNP 02/02/20 02/02/20 02/02/20 02:02 05:35 11:08 Troponin I 0.13 H 0.15 H 0.10 H Troponin, BNP 02/02/20 02/02/20 02/02/20 02:02 05:35 11:08 Troponin I 0.13 H 0.15 H 0.10 H NSR @ 69 LAD, LVH Ejection Fraction %: LVEF > or = 40 % Imaging - Results Chest X-ray: Report Reviewed (Left base ATX) Cat Scan: Report Reviewed ( 02/02/20 05:41 Patient Name: GUERO BARRIENTOS THIS IS A PRELIMINARY REPORT DATE OF SERVICE: 2020-02-02 03:52:47 IMAGES: 226 EXAM: HEAD CT WITHOUT CONTRAST HISTORY: Patient fell COMPARISON: None. FINDINGS: No acute intracranial abnormality. No hemorrhage. Osseous structures are intact. 02/02/20 05:42 Patient Name: GUERO BARRIENTOS THIS IS A PRELIMINARY REPORT DATE OF SERVICE: 2020-02-02 03:55:45 IMAGES: 460 EXAM: FACIAL BONES CT W/O CONTRAST HISTORY: Patient fell. Facial pain COMPARISON: None. FINDINGS: Negative for orbital or facial fracture. The globes and orbits are intact although there is a metal density in the anterior segment of the left globe. Surgical? Correlate with history.) Problem List - Problems (1) Hypertensive heart disease Code(s): I11.9 - HYPERTENSIVE HEART DISEASE WITHOUT HEART FAILURE Qualifiers: Heart failure presence: without heart failure Qualified Code(s): I11.9 - Hypertensive heart disease without heart failure (2) Demand ischemia Code(s): I24.8 - OTHER FORMS OF ACUTE ISCHEMIC HEART DISEASE (3) Trigeminal neuralgia of right side of face Code(s): G50.0 - TRIGEMINAL NEURALGIA Assessment/Plan 1. Trigeminal neuralgia flare refractory to medications 2. Hypertensive heart disease 3. Demand ischemia P:1. Trops downtrending 2. Continue Norvasc 10 qd, fenofibrate 134 qd, losartan 25 qd, maintained on carbamezapine 600 bid, gabapentin 300 tid, imipramine 50 qhs, was on percocet twice daily as needed and would preferably avoid Mobic 7.5 qd as needed for pain 3. Contact Dr. Grupo Martinez of Neurosurgery at [facility] and inform him of her flar e 4. Echocardiogram to assesss ventricular function 5. Thank you for consultative opportunity
[2020-02-02] MEDS ORDERED: PT OWN MED DRAWER 7, Y5N ONE ×2 (12:19→20:48)
[2020-02-02] MEDS: oxyCODONE HCL 5 MG TABLET PO PRN (12:22)
[2020-02-02] MEDS: carBAMazepine 200 MG TABLET PO SCH (12:23)
--- NOTE | 2020-02-02 13:40 | PN ---
Teaching Attending Note Name of Resident: Thanh Ray ATTENDING PHYSICIAN STATEMENT I saw and evaluated the patient. I reviewed the resident's note and discussed the case with the resident. I agree with the resident's findings and plan as documented. SUBJECTIVE: 69 y/o female with htn, trigeminal neuralgia presented with right sided facial pain, dizziness ED workup revealed positive troponins so patient admitted under NSTEMI diagnosis Currently pt sleeping heavy in her bed, was awakened by me for exam -- states no cp, sob, n/v; right sided facial pain gone, still some dizziness OBJECTIVE: Gen: Pt a and o, nad HEENT: nc/at, eomi, orophaynx - clear Neck: suppler Chest: Decreased bs shelby Abd: soft, nt, obese Ext: no c/c/e Labs WBC: 12k Trop 0.[address] head negative ASSESSMENT AND PLAN: 69 y/o female with the above med hx admitted with nstemi *nsyemi - trops going down demand ischemia baby asa check echo as per cardio monitor on tele *htn - cont norvasc, adjust as needed *trigeminal neuralgia - cont home meds *leukocytosis - ?early infiltrate on cxr versus atelectasis cover for CAP now, repeat cxr tomorrow *dvt prophy Problem List - Problems (1) NSTEMI (non-ST elevated myocardial infarction) Code(s): I21.4 - NON-ST ELEVATION (NSTEMI) MYOCARDIAL INFARCTION
[2020-02-02] MEDS: GABAPENTIN 400 MG CAPSULE PO SCH ×2 (14:49→21:09)
[2020-02-02] MEDS: SODIUM CHLORIDE 1,000 ML IV SCH (14:50)
[2020-02-02] MEDS: ASPIRIN 81 MG CHEWABLE TABLETS PO SCH (14:50)
[2020-02-02] MEDS ORDERED: AZITHROMYCIN IVPB 500 MG in DEXTROSE 5%-WATER - 250 ML IVPB SCH (16:30)
[2020-02-02] MEDS ORDERED: DEXTROSE 5%-WATER - 50 ML IVPB ONE (16:57)
[2020-02-02] MEDS ORDERED: cefTRIAXone SODIUM 1 GM VIAL ONE (16:57)
[2020-02-02] MEDS: CEFTRIAXONE 1 GM in DEXTROSE 5%-WATER - 50 ML IVPB SCH (17:00)
[2020-02-02] MEDS: AZITHROMYCIN IVPB 500 MG/250 ML BAG IVPB SCH (18:37)
[2020-02-02] MEDS: LATANOPROST 0.005% OPHTH SOLN 2.5ML BOTTLE OU SCH (21:15)
[2020-02-02] MEDS ORDERED: carBAMazepine 100 MG TAB.CHEW PO SCH (22:00)
[2020-02-03] MEDS: GABAPENTIN 400 MG CAPSULE PO SCH ×3 (05:26→21:33)
[2020-02-03 06:56] LABS: BASO % 0.7 % (0-2.0); HEMATOCRIT 34.4 % (32.4-45.2); HEMOGLOBIN 11.4 GM/dL (10.7-15.3); LYMPH % 42.2 % (8-40); MCH 27.6 pg (25.7-33.7); MEAN CELL VOLUME 83.7 fl (80-96); MEAN PLT VOLUME 9.7 fl (7.5-11.1); MONO % 9.4 % (3.8-10.2); NEUT % 44.7 % (42.8-82.8); PLATELET COUNT 245 K/MM3 (134-434); RBC 4.11 M/mm3 (3.60-5.2); RDW 13.6 % (11.6-15.6); WHITE BLOOD COUNT 5.5 K/mm3 (4.0-10.0)
[2020-02-03 07:18] LABS: ALBUMIN 3.3 g/dl (3.4-5.0); BILIRUBIN,TOTAL 0.5 mg/dL (0.2-1); BLOOD UREA NITROGEN 8.3 mg/dL (7-18); CALCIUM 8.9 mg/dL (8.5-10.1); CREATININE 0.7 mg/dL (0.55-1.3); MAGNESIUM 1.7 mg/dL (1.8-2.4); PHOSPHOROUS 2.8 mg/dL (2.5-4.9); POTASSIUM 4.2 mmol/L (3.5-5.1); TOT PROT 6.3 g/dl (6.4-8.2)
[2020-02-03] MEDS ORDERED: MAGNESIUM OXIDE 400 MG TABLET (FP) PO ONE (08:11)
[2020-02-03] MEDS: carBAMazepine 200 MG TABLET PO SCH (09:44)
[2020-02-03] MEDS: ASPIRIN 81 MG CHEWABLE TABLETS PO SCH (09:44)
[2020-02-03] MEDS: LOSARTAN POTASSIUM 25 MG TABLET PO SCH (09:44)
[2020-02-03] MEDS: amLODIPine BESYLATE 5 MG TABLET (FP) PO SCH (09:44)
[2020-02-03] MEDS: BRIMONIDINE TARTRATE 0.2% OPHTHALMIC 5 ML BOTTLE OU SCH (09:45)
[2020-02-03] MEDS: ENOXAPARIN NA (PORCINE) 40 MG/0.4 ML DISP.SYRIN SQ SCH (09:45)
[2020-02-03] MEDS: TIMOLOL 0.5% OPHTHALMIC SOL 5 ML BOTTLE OU SCH (09:47)
[2020-02-03] MEDS ORDERED: PATIENT'S OWN MEDICATION (NON-FORMULARY) (Brimonidine Tartrate/Timolol [Combigan 0.2%-0.5% OU SCH (10:00)
[2020-02-03] MEDS ORDERED: TRAVOPROST OU SCH (10:00)
[2020-02-03] MEDS ORDERED: DEXTROSE 5%-WATER - 50 ML IVPB ONE (12:03)
[2020-02-03] MEDS ORDERED: cefTRIAXone SODIUM 1 GM VIAL ONE (12:03)
[2020-02-03] MEDS: CEFTRIAXONE 1 GM in DEXTROSE 5%-WATER - 50 ML IVPB SCH (12:08)
[2020-02-03] MEDS: AZITHROMYCIN IVPB 500 MG/250 ML BAG IVPB SCH (12:08)
[2020-02-03] MEDS: SODIUM CHLORIDE 1,000 ML IV SCH ×2 (12:08→13:00)
--- NOTE | 2020-02-03 12:25 | PN ---
Progress Note, Physician History of Present Illness: Mayelin Bailey a 69 year oldfemalewith h/o HTN right facial pain consistent with trigeminal neuralgia and has had consultation with Dr. Grupo Martinez neurosurgery at [facility] regarding refractory symptoms despite escalating doses of gabapentin, carbamezepine and percocet, he last spoke with her 01/30/2020 and discussed open surgery with retrosigmoid craniectomy for microvascular decompression vs gamma knife radiosurgery which typically takes 1-2 months to work and has scheduled televist Tuesday to discuss clinical response with meds and plans. She presented to the ER with complaints of dizziness and severe R sided facial pain, constant, sharp in nature, and causing her to avoid eating due to the pain. She also reports associated positional dizziness and diplopia, has not eaten or drank in 5 days, reports resting tremors. Demand ischemia in context of elevated BP is noted, she denies chest pain, dyspnea, near or true syncope, orthopnea, PND or LE edema. - Current Medication List Current Medications: Active Medications Acetaminophen (Tylenol -) 325 mg PO Q4H PRN PRN Reason: PAIN LEVEL 1 - 6 Stop: 02/05/20 11:14 Acetaminophen (Tylenol -) 650 mg PO Q4H PRN PRN Reason: PAIN LEVEL 7 - 10 Stop: 02/05/20 11:14 Last Admin: 02/02/20 12:23 Dose: 650 mg Documented by: Amlodipine Besylate (Norvasc -) 5 mg PO DAILY [facility] Last Admin: 02/03/20 09:44 Dose: 5 mg Documented by: Aspirin (Asa -) 81 mg PO DAILY [facility] Last Admin: 02/03/20 09:44 Dose: 81 mg Documented by: Brimonidine Tartrate (Alphagan 0.2% -) 1 drop OU DAILY [facility] Last Admin: 02/03/20 09:45 Dose: 1 drop Documented by: Carbamazepine (Tegretol -) 600 mg PO DAILY [facility] Last Admin: 02/03/20 09:44 Dose: 600 mg Documented by: Carbamazepine (Tegretol -) 300 mg PO HS [facility] Last Admin: 02/02/20 21:09 Dose: 300 mg Documented by: Enoxaparin Sodium (Lovenox -) 40 mg SQ DAILY [facility] Last Admin: 02/03/20 09:45 Dose: 40 mg Documented by: Gabapentin (Neurontin -) 800 mg PO TID [facility] Last Admin: 02/03/20 05:26 Dose: 800 mg Documented by: Sodium Chloride (Normal Saline -) 1,000 mls @ 75 mls/hr IV ASDIR [facility] Last Admin: 02/03/20 12:08 Dose: 75 mls/hr Documented by: Ceftriaxone Sodium 1 gm/ (Dextrose) 50 mls @ 100 mls/hr IVPB DAILY [facility]; Protocol Last Admin: 02/03/20 12:08 Dose: 100 mls/hr Documented by: Azithromycin (Zithromax 500mg Ivpb (Pre-Docked)) 500 mg in 250 mls @ 250 mls/hr IVPB DAILY [facility] Last Admin: 02/03/20 12:08 Dose: 250 mls/hr Documented by: Latanoprost (Xalatan 0.005% Eye Drops -) 1 drop OU HS [facility] Last Admin: 02/02/20 21:15 Dose: 1 drop Documented by: Losartan Potassium (Cozaar -) 25 mg PO DAILY [facility] Last Admin: 02/03/20 09:44 Dose: 25 mg Documented by: Oxycodone HCl (Roxicodone -) 5 mg PO Q4H PRN PRN Reason: PAIN LEVEL 1 - 6 Oxycodone HCl (Roxicodone -) 10 mg PO Q4H PRN PRN Reason: PAIN LEVEL 7 - 10 Last Admin: 02/02/20 12:22 Dose: 10 mg Documented by: Timolol Maleate (Timoptic 0.5%) 1 drop OU DAILY [facility] Last Admin: 02/03/20 09:47 Dose: 1 drop Documented by: - Objective Vital Signs: Vital Signs Temperature 98.1 F 02/03/20 09:00 Pulse Rate 63 02/03/20 09:00 Respiratory Rate 22 H 02/03/20 09:00 Blood Pressure 163/69 02/03/20 09:00 O2 Sat by Pulse Oximetry (%) 97 02/03/20 09:00 Constitutional: Yes: Anxious, Mild Distress Neck: Yes: Supple Cardiovascular: Yes: Regular Rate and Rhythm Respiratory: Yes: Regular, CTA Bilaterally Gastrointestinal: Yes: Soft, Hypoactive Bowel Sounds Edema: No Labs: CBC, BMP 02/03/20 05:28 02/03/20 05:28 Problem List - Problems (1) Hypertensive heart disease Code(s): I11.9 - HYPERTENSIVE HEART DISEASE WITHOUT HEART FAILURE Qualifiers: Heart failure presence: without heart failure Qualified Code(s): I11.9 - Hypertensive heart disease without heart failure (2) Demand ischemia Code(s): I24.8 - OTHER FORMS OF ACUTE ISCHEMIC HEART DISEASE (3) Trigeminal neuralgia of right side of face Code(s): G50.0 - TRIGEMINAL NEURALGIA Assessment/Plan 1. Trigeminal neuralgia flare refractory to medications 2. Hypertensive heart disease 3. Demand ischemia P:1. Trops downtrending 2. Increased Norvasc 10 qd, added Toprol 12.5 qd, resume losartan 25 qd, maintained on carbamezapine 600 bid, gabapentin 300 tid, imipramine 50 qhs, was on percocet twice daily as needed and would preferably avoid Mobic 7.5 qd as needed for pain 3. Contact Dr. Grupo Martinez of Neurosurgery at [facility] and inform him of her flare 4. Echocardiogram to assesss ventricular function
[2020-02-03] MEDS ORDERED: DOCUSATE NA 100 MG/10 ML UNIT-DOSE CUPS PO PRN (12:30)
[2020-02-03] MEDS ORDERED: BISACODYL 10 MG SUPP.RECT PR ONE (12:31)
--- NOTE | 2020-02-03 12:33 | PN ---
Progress Note (short form) - Note Progress Note: Subjective: no fever or chills. reports feeling dizzy x 5 days, can't well describe it, worse when she gets up, did not eat or drink in 5 days , decreased appetite, painin face preventing eating. painin face is better today. has diplopia even when she closes one eye x 2 days now. no adb pain but constipated. no cough , no cp , no SOB , no CRAIG, no cough . reports shaking in hands when trying to use her phone Objective: Vital Signs: Last Vital Signs Temp Pulse Resp BP Pulse Ox 98.1 F 63 22 H 163/69 97 02/03/20 09:00 02/03/20 09:00 02/03/20 09:00 02/03/20 09:00 02/03/20 09:00 Laboratory Results - last 24 hr 02/02/20 02/03/20 02/03/20 05:23 05:28 05:28 WBC 5.5 RBC 4.11 Hgb 11.4 Hct 34.4 MCV 83.7 MCH 27.6 MCHC 33.0 RDW 13.6 Plt Count 245 MPV 9.7 Absolute Neuts (auto) 2.5 Neutrophils % 44.7 D Lymphocytes % 42.2 H D Monocytes % 9.4 D Eosinophils % 3.0 D Basophils % 0.7 Nucleated RBC % 0 Sodium 134 L Potassium 4.2 Chloride 101 Carbon Dioxide 24 Anion Gap 8 BUN 8.3 Creatinine 0.7 Est GFR (CKD-EPI)AfAm 102.46 Est GFR (CKD-EPI)NonAf 88.40 Random Glucose 83 Calcium 8.9 Phosphorus 2.8 Magnesium 1.7 L Total Bilirubin 0.5 AST 27 ALT 33 Alkaline Phosphatase 136 H Total Protein 6.3 L Albumin 3.3 L COVID-19 (ANDRÉS) Not detected Physical Exam: NAD awake, became dizzy when she sat up. EOMI, dry MM . CV: RRR, no MRG Lungs: bibasilar crackles ABd:soft , NT, ND , NL BS Ext : No edema or erythema on upper or lower extremities Neuro: horizontal nystagmus with lateral gaze b/l. no facial droop, nl facial sensaiton , tongue at mid line. strength 5/5 in upper and lower extremity proximally and distally. sensation to light touch nl. nose to finger and rapid alternating movements are normal. visual filed normal . Imaging: cts report reviewed and Cxrays report and image reviewed. Assessment/Plan: 69 y/o lady with h/o trigeminal neuralgia, and HTN who presented with dizziness, diplopia and R sided facial pain. 1- Dizziness: unable to determine Vertigo Vs light headedness ( likely light headedness) . Non focal neuro exam, normal visual filed on exam. became very dizzy and nauseous when she sat up ---> hypovolemia form not being able to eatx 5 days stroke is unlikely. dipolopia persists even with closing one eye , which make me question accuracy of this symptom. I was unable to perform Ninfa Halpike . - Possible side effects form meds ( carbamazepine ) /neurontin - percocet is the only new med added last week . will stop - increase IVF to 100 cc /hr - check ortho VS - consult neuro -if dizziness persists after hydration , will need MRI of brain 2- Elevated trop: EKG with no ischemic changes. trop trended. type II ischemia likely - cont asa - add low dose toprol - will need stress test at some point 3- Trigeminal neuralgia: refracotry to medical treatment - cont her home dose of carbamazepine - dc percocet - cont neurontin. - question of side effects of meds 4- Mild leukocytosis . no signs of pna clinically. no clear infiltrate on repeat cxry . first xray was rotated monitor and DC Abx 5- HTN : cont home norvasc at 10 mg. add toprol. dc losartan as she does not take at home. if not orthostatic nad she tolerates BB , wwe can introduce ARB DVT px Meds were reviewed with and mes were updated in EMR Visit type - Emergency Visit Emergency Visit: Yes ED Registration Date: 02/02/20 Care time: The patient presented to the Emergency Department on the above date and was hospitalized for further evaluation of their emergent condition. - New Patient This patient is new to me today: Yes Date on this admission: 02/03/20 - Critical Care Critical Care patient: No - Medication Review Med list reviewed for High Risk Meds patients 65 and older: Yes
[2020-02-03] MEDS ORDERED: DEXAMETHASONE 4 MG TABLET (FP) PO ONE (15:00)
--- NOTE | 2020-02-03 15:26 | CON.NEURO ---
Consult - Alcohol/Substance Use Hx Alcohol Use: No - Smoking History Smoking history: Never smoked Have you smoked in the past 12 months: No Home Medications - Allergies Allergies/Adverse Reactions: Allergies Allergy/AdvReac Type Severity Reaction Status Date / Time No Known Allergies Allergy Verified 02/01/20 22:42 - Home Medications Home Medications: Ambulatory Orders Oxycodone HCl/Acetaminophen [Percocet 5-325 mg Tablet] 1 tab PO Q4H PRN 10/13/16 Amlodipine Besylate 10 mg PO DAILY 11/27/16 Brimonidine Tartrate/Timolol [Combigan 0.2%-0.5% Eye Drops] 1 drop OU HS 02/02/20 Carbamazepine 600 mg PO DAILY 02/02/20 Carbamazepine 600 mg PO HS 02/02/20 Gabapentin 300 mg PO Q8H 02/02/20 Travoprost 1 drop OU HS 02/02/20 Carbamazepine 300 mg PO DAILY@1900 02/03/20 Fenofibrate,Micronized [Fenofibrate] 130 mg PO DAILY 02/03/20 Physical Exam-Neuro Vital Signs: Vital Signs Temperature 98.2 F 02/03/20 14:00 Pulse Rate 68 02/03/20 14:00 Respiratory Rate 20 02/03/20 14:00 Blood Pressure 151/77 02/03/20 14:00 O2 Sat by Pulse Oximetry (%) 97 02/03/20 09:00 Labs: CBC, BMP 02/03/20 05:28 02/03/20 05:28 Assessment/Plan cc Dizziness and history of Trigeminal Neuralgia HPI 69 year old female history of Trigeminal neuralgia and htn. She was seen with her boyfriend at bedside. She came with dizziness, and complaining of right face pain. Patient has history of right trigeminal neuralgia and has work up done in past. Patient describes this pain as very sharp pain shooting on right side of face. Patient has been scheduled for right gamma knife surgery. Patient is on gabapentin and cbz . She also takes percocet for pain control. PAST MEDICAL HISTORY: See HPI Allergies No Known Allergies Allergy (Verified 02/01/20 22:42) HOME MEDICATIONS: Home Medications Medication Instructions Recorded Cyclobenzaprine HCl [Flexeril 10 5 mg PO TID PRN #21 tablet 10/13/16 mg] Losartan Potassium 25 mg PO DAILY 10/13/16 Methylprednisolone [Medrol Dose 4 mg PO ASDIR #21 tablet 10/13/16 Mukesh] Naproxen [Naprosyn -] 500 mg PO BID 10/13/16 Oxycodone HCl/Acetaminophen 1 - 2 tab PO Q4H 10/13/16 [Percocet 5-325 mg Tablet] Amlodipine Besylate 5 mg PO DAILY 11/27/16 ROS,FH,SH reviewed in chart NEUROLOGICAL EXAMINATION Alert oriented x 3, neck is supple eomi, pupils reactive on facial symmetry there is hypersensitivity to right side of face moving all ext sensation is normal 69 year old female history of Trigeminal neuralgia and htn, cmplain of severe dizziness, diplopia, suspect medication toxiicty ( cbz, gabapentin, oxycodone and flexeril) pateint was schedule to see neurosurgery and possible gamma knife surgery very soon Plan- advice to cut down ton cbz, to 300 mg po bid as her pain is less concern ahd dizziness and diplopia is bigger concern - mri of brain - give her one dose of dexamethasone 10 mg iv once and consider phosphenytoin for trigeminal neuralia if continue pain - once dizziness is better than she can be dischargted home for possible gamma knife surgery Thanking you so much Harish Garcia MD
[2020-02-03] MEDS ORDERED: PT OWN MED DRAWER 7, Y5N ONE (18:23)
[2020-02-03] MEDS ORDERED: carBAMazepine 200 MG TABLET PO SCH ×2 (19:00→22:00)
[2020-02-03] MEDS: LATANOPROST 0.005% OPHTH SOLN 2.5ML BOTTLE OU SCH (21:34)
[2020-02-03 23:35] LABS: PH,URINE 7.5 (5.0-8.0); URINE APPEARANCE CLEAR; URINE BILIRUBIN NEGATIVE (NEGATIVE); URINE COLOR YELLOW; URINE GLUCOSE (UA) NEGATIVE (NEGATIVE); URINE KETONE NEGATIVE (NEGATIVE); URINE LEUK ESTERASE NEGATIVE (NEGATIVE); URINE NITRITE NEGATIVE (NEGATIVE); URINE PROTEIN NEGATIVE (NEGATIVE); URINE UROBILINOGEN 0.2 mg/dL (0.2-1.0)
[2020-02-04] MEDS: SODIUM CHLORIDE 1,000 ML IV SCH ×3 (04:58→18:35)
[2020-02-04] MEDS: GABAPENTIN 400 MG CAPSULE PO SCH ×3 (05:14→21:28)
[2020-02-04] MEDS: carBAMazepine 100 MG TAB.CHEW PO SCH ×3 (05:15→21:29)
[2020-02-04] MEDS: oxyCODONE HCL 5 MG TABLET PO PRN ×2 (05:15→09:09)
[2020-02-04 07:51] LABS: BASO % 0.5 % (0-2.0); EOS % 1.6 % (0-4.5); HEMATOCRIT 34.5 % (32.4-45.2); HEMOGLOBIN 11.3 GM/dL (10.7-15.3); LYMPH % 30.3 % (8-40); MCH 27.5 pg (25.7-33.7); MCHC 32.8 g/dl (32.0-36.0); MEAN CELL VOLUME 83.7 fl (80-96); MEAN PLT VOLUME 9.5 fl (7.5-11.1); MONO % 9.5 % (3.8-10.2); NEUT % 58.1 % (42.8-82.8); PLATELET COUNT 257 K/MM3 (134-434); RBC 4.12 M/mm3 (3.60-5.2); WHITE BLOOD COUNT 7.1 K/mm3 (4.0-10.0)
[2020-02-04 08:12] LABS: BLOOD UREA NITROGEN 7.3 mg/dL (7-18); CALCIUM 8.7 mg/dL (8.5-10.1); CREATININE 0.6 mg/dL (0.55-1.3); MAGNESIUM 1.7 mg/dL (1.8-2.4); POTASSIUM 3.7 mmol/L (3.5-5.1)
[2020-02-04] MEDS: metoPROLOL SUCCINATE 25 MG TAB.SR.24H (FP) PO SCH (09:02)
[2020-02-04] MEDS: FENOFIBRIC ACID 135 MG CAP PO SCH (09:02)
[2020-02-04] MEDS: TIMOLOL 0.5% OPHTHALMIC SOL 5 ML BOTTLE OU SCH (09:03)
[2020-02-04] MEDS: ENOXAPARIN NA (PORCINE) 40 MG/0.4 ML DISP.SYRIN SQ SCH (09:03)
[2020-02-04] MEDS: BRIMONIDINE TARTRATE 0.2% OPHTHALMIC 5 ML BOTTLE OU SCH (09:03)
[2020-02-04] MEDS: amLODIPine BESYLATE 5 MG TABLET (FP) PO SCH (09:03)
[2020-02-04] MEDS: ASPIRIN 81 MG CHEWABLE TABLETS PO SCH (09:03)
--- NOTE | 2020-02-04 09:53 | PN ---
Progress Note, Physician Chief Complaint: Events noted Complains of pain due to trigeminal neuralgia History of Present Illness: Patient was seen and examined. Awake and alert. Chart was reviewed Denies chest pain, SOB or palpitations - Current Medication List Current Medications: Active Medications Acetaminophen (Tylenol -) 325 mg PO Q4H PRN PRN Reason: PAIN LEVEL 1 - 6 Stop: 02/05/20 11:14 Acetaminophen (Tylenol -) 650 mg PO Q4H PRN PRN Reason: PAIN LEVEL 7 - 10 Stop: 02/05/20 11:14 Last Admin: 02/02/20 12:23 Dose: 650 mg Documented by: Amlodipine Besylate (Norvasc -) 10 mg PO DAILY [facility] Last Admin: 02/04/20 09:03 Dose: 10 mg Documented by: Aspirin (Asa -) 81 mg PO DAILY [facility] Last Admin: 02/04/20 09:03 Dose: 81 mg Documented by: Brimonidine Tartrate (Alphagan 0.2% -) 1 drop OU DAILY [facility] Last Admin: 02/04/20 09:03 Dose: 1 drop Documented by: Carbamazepine (Tegretol -) 300 mg PO TID [facility] Last Admin: 02/04/20 05:15 Dose: 300 mg Documented by: Docusate Sodium (Colace Liquid -) 200 mg PO DAILY PRN PRN Reason: CONSTIPATION Last Admin: 02/04/20 09:10 Dose: 200 mg Documented by: Enoxaparin Sodium (Lovenox -) 40 mg SQ DAILY [facility] Last Admin: 02/04/20 09:03 Dose: 40 mg Documented by: Fenofibric Acid (Trilipix -) 135 mg PO DAILY [facility] Last Admin: 02/04/20 09:02 Dose: 135 mg Documented by: Gabapentin (Neurontin -) 800 mg PO TID [facility] Last Admin: 02/04/20 05:14 Dose: 800 mg Documented by: Sodium Chloride (Normal Saline -) 1,000 mls @ 100 mls/hr IV ASDIR [facility] Last Admin: 02/04/20 04:58 Dose: 100 mls/hr Documented by: Latanoprost (Xalatan 0.005% Eye Drops -) 1 drop OU HS [facility] Last Admin: 02/03/20 21:34 Dose: 1 drop Documented by: Metoprolol Succinate (Toprol Xl -) 12.5 mg PO DAILY [facility] Last Admin: 02/04/20 09:02 Dose: 12.5 mg Documented by: Oxycodone HCl (Roxicodone -) 5 mg PO Q4H PRN PRN Reason: PAIN LEVEL 1 - 6 Last Admin: 02/03/20 23:07 Dose: 5 mg Documented by: Oxycodone HCl (Roxicodone -) 10 mg PO Q4H PRN PRN Reason: PAIN LEVEL 7 - 10 Last Admin: 02/04/20 05:15 Dose: 10 mg Documented by: Timolol Maleate (Timoptic 0.5%) 1 drop OU DAILY [facility] Last Admin: 02/04/20 09:03 Dose: 1 drop Documented by: - Objective Vital Signs: Vital Signs Temperature 98.2 F 02/04/20 05:07 Pulse Rate 73 02/04/20 05:31 Respiratory Rate 18 02/04/20 05:07 Blood Pressure 164/72 02/04/20 05:31 O2 Sat by Pulse Oximetry (%) 95 02/04/20 05:07 Eyes: Yes: PERRL HENT: Yes: Atraumatic Neck: Yes: Supple Cardiovascular: Yes: Regular Rate and Rhythm, S1, S2 Respiratory: Yes: CTA Bilaterally Gastrointestinal: Yes: Normal Bowel Sounds, Soft. No: Tenderness Edema: No Additional Findings/Remarks: - Review of Systems Constitutional: denies: Chills, Fever Cardiovascular: denies Chest Pain, Shortness of Breath. denies: Palpitations Respiratory: denies: Cough, Hemoptysis, Orthopnea, PND Gastrointestinal: denies: Abdominal Pain, Constipation, Diarrhea, Melena, Nausea, Rectal Bleeding, Vomiting Genitourinary: denies: Dysuria, Hematuria Musculoskeletal: denies: Back Pain, Joint Pain Neurological: denies: Dizziness, Headache, Seizure, Syncope Labs: CBC, BMP 02/04/20 06:33 02/04/20 06:33 Problem List - Problems (1) Demand ischemia Code(s): I24.8 - OTHER FORMS OF ACUTE ISCHEMIC HEART DISEASE (2) Hypertensive heart disease Code(s): I11.9 - HYPERTENSIVE HEART DISEASE WITHOUT HEART FAILURE Qualifiers: Heart failure presence: without heart failure Qualified Code(s): I11.9 - Hypertensive heart disease without heart failure (3) Trigeminal neuralgia of right side of face Code(s): G50.0 - TRIGEMINAL NEURALGIA Assessment/Plan 1. Trigeminal neuralgia flare refractory to medications 2. Hypertensive heart disease 3. Demand ischemia PLAN: 1. Trend troponin (downward trending) 2. Continue Norvasc 10 mg QD, Toprol 12.5 mg QD and Amlodipine 10 mg QD. 3. Pain management 4. Dr. Grupo Martinez is the Neurosurgery for the patient at [facility]. Dr. Martinez has been notified according to medical records 5. Echocardiography to assess LV/RV and valvular function Further plans are to follow Valentin Goldberg MD
[2020-02-04] MEDS ORDERED: ACETAMINOPHEN INJECTION 100 ML IVPB ONE (11:18)
[2020-02-04] MEDS: ACETAMINOPHEN 1000 MG/100 ML VIAL (NON FORMULARY) IVPB PRN (11:25)
[2020-02-04] MEDS ORDERED: LIDOCAINE HCL 2% JELLY (30 ML/TUBE) TP ONE (12:45)
[2020-02-04] MEDS ORDERED: morphine SULFATE 4 MG/ML VIAL IVPUSH ONE (12:45)
[2020-02-04] MEDS ORDERED: PT OWN MED DRAWER 7, Y5N ONE (13:22)
--- NOTE | 2020-02-04 14:44 | ECHO ---
Name: BARRIENTOS, GUERO Exam:Adult Echocardiogram Study Date: 02/04/2020 10:29 AM Age: 69 yrs Reason For Study: R/O ACS Height: 65 in Weight: 190 lb BSA: 1.9 m2 MMode/2D Measurements & Calculations IVSd: 0.80 cm Ao root diam: 3.2 cm LVIDd: 4.8 cm LA dimension: 3.9 cm LVIDs: 3.3 cm ACS: 1.7 cm LVPWd: 0.95 cm EDV(Teich): 109.5 ml LVOT diam: 2.0 cm ESV(Teich): 45.2 ml LAV (MOD-bp): 63.0 ml TAPSE: 2.2 cm RV S Woodrow: 18.4 cm/sec Doppler Measurements & Calculations MV E max woodrow: 75.7 cm/sec Ao V2 max: 168.3 cm/sec MV A max woodrow: 106.9 cm/sec Ao max P.3 mmHg MV E/A: 0.71 Ao V2 mean: 116.1 cm/sec MV dec time: 0.35 sec Ao mean P.0 mmHg Ao V2 VTI: 31.5 cm FERNANDO(I,D): 3.0 cm2 FERNANDO(V,D): 2.8 cm2 LV V1 max P.3 mmHg SV(LVOT): 93.2 ml LV V1 mean P.9 mmHg LV V1 max: 152.2 cm/sec LV V1 mean: 102.8 cm/sec LV V1 VTI: 30.0 cm TR max woodrow: 238.9 cm/sec PA V2 max: 153.4 cm/sec TR max P.9 mmHg PA max P.4 mmHg PA acc slope: 731.1 cm/sec2 PA acc time: 0.13 sec PI end-d woodrow: 111.3 cm/sec Med Peak E' Woodrow: 10.6 cm/sec Med E/e': 7.1 Lat Peak E' Woodrow: 8.6 cm/sec Lat E/e': 8.8 PA pr(Accel): 22.0 mmHg Pulm Sys Woodrow: 51.3 cm/sec Pulm Fofana Woodrow: 42.9 cm/sec Pulm S/D: 1.2 Tech Comments TDS due to body habitus. Procedure A complete two-dimensional transthoracic echocardiogram was performed (2D, M-mode, Doppler and color flow Doppler). Left Ventricle The left ventricle is normal in size. Left ventricular systolic function is normal. Ejection Fraction = 60- 65%. No regional wall motion abnormalities noted. Right Ventricle The right ventricle is normal size. The right ventricular systolic function is normal. Atria The left atrial size is normal. LA volume index is 33 ml/m2. Right atrial size is normal. Mitral Valve There is mild mitral annular calcification. There is mild mitral regurgitation. Tricuspid Valve The tricuspid valve is normal in structure and function. There is mild tricuspid regurgitation. PASP is at least 30 mmHg as RA is assumed 3 mmHg. Aortic Valve The aortic valve is normal in structure and function. No aortic regurgitation is present. Pulmonic Valve The pulmonic valve is not well seen, but is grossly normal. Mild to moderate pulmonic valvular regurg itation. Great Vessels The aortic root is normal size. Pericardium/Pleura There is no pericardial effusion. Interpretation Summary The left ventricle is normal in size. Left ventricular systolic function is normal. No regional wall motion abnormalities noted. Ejection Fraction = 60-65%. The right ventricular systolic function is normal. The left atrial size is normal. Right atrial size is normal. There is mild mitral annular calcification. There is mild mitral regurgitation. There is mild tricuspid regurgitation. PASP is at least 30 mmHg as RA is assumed 3 mmHg Mild to moderate pulmonic valvular regurgitation. There is no pericardial effusion. Valentin Goldberg MD 02/04/2020 02:44 PM
--- NOTE | 2020-02-04 15:32 | PN ---
Teaching Attending Note Name of Resident: Toshia Jameson ATTENDING PHYSICIAN STATEMENT I saw and evaluated the patient. I reviewed the resident's note and discussed the case with the resident. I agree with the resident's findings and plan as documented. SUBJECTIVE: no fever or chills. has severe pain in R sided face, not able to eat or drink. dizziness is better , shaking inhands has resolved. diplopia has resolved OBJECTIVE: NAD awake, looks in pain, avoid opening mouth , mumbles CV: RRR, no MRG Lungs: CTAB ABd:soft , NT, ND , NL BS Ext: No edema or erythema on upper or lower extremities Assessment/Plan: 69 y/o lady with h/o trigeminal neuralgia, and HTN who presented with dizziness, diplopia and R sided facial pain. 1- Severe trigeminal neuralgia: - cont carbamazepine 300 TID ( tolerated this dose and side effects improved ) - cont neurontin - dexamethasone did not help - will try phosphenytoine per d./w dr. Garcia - add morphine - add lidoncaine gell topically - team spoke to Dr. Martinez, her treating MD , he suggested she gets transferred for surgical procedure. will contact transfer center/medical service 2- dizziness, tremors, and diplopia: likely due to carbamazepine. - sx improved after decreasing dose - MRI pending 3-elevated trop: - cont ASa - cont toprol - echo reviewed. - will need stress test at some point 4- Mild leukocytosis . resolved . no signs of infection 5- HTN : cont home norvasc at 10 mg and toprol. No orthostatic hypotension DVT px Will try to transfer
[2020-02-04] MEDS ORDERED: FOSPHENYTOIN SODIUM 1,000 MG in SODIUM CHLORIDE 100 ML IVPB ONE (15:45)
--- NOTE | 2020-02-04 16:28 | PN ---
Physical Exam: SUBJECTIVE: Patient seen and examined. Upon my evaluation, pt was clutching R side of face, refusing to speak and was tearful. Current pain medications not controlling pt's pain. Pt complained of persistent dizziness. OBJECTIVE: Vital Signs Period Temp Pulse Resp BP Sys/Fofana Pulse Ox Last 24 Hr 97.5 F-98.8 F 53-77 18-20 123-164/53-87 95-98 GENERAL: Tearful, clutching R side face, refusing to speak. HEENT: NCAT, EOMI. Pupils pinpoint, reactive to light. LUNGS: Equal breath sounds b/l. Clear to auscultation, no wheezes. HEART: Regular rate and rhythm. S1 and S2 present. No murmurs. ABDOMEN: Soft, non-distended, non-tender to palpation. Bowel sounds present. EXTREMITIES: Warm, well-perfused. NEUROLOGICAL: Sensation intact. Strength 5/5 b/l of UE and LE. Moving all extremities spontaneously. SKIN: No visible lesions seen. Warm, dry. Laboratory Last Values WBC 7.1 K/mm3 (4.0-10.0) 02/04/20 06:33 RBC 4.12 M/mm3 (3.60-5.2) 02/04/20 06:33 Hgb 11.3 GM/dL (10.7-15.3) 02/04/20 06:33 Hct 34.5 % (32.4-45.2) 02/04/20 06:33 MCV 83.7 fl (80-96) 02/04/20 06:33 MCH 27.5 pg (25.7-33.7) 02/04/20 06:33 MCHC 32.8 g/dl (32.0-36.0) 02/04/20 06:33 RDW 13.0 % (11.6-15.6) 02/04/20 06:33 Plt Count 257 K/MM3 (134-434) 02/04/20 06:33 MPV 9.5 fl (7.5-11.1) 02/04/20 06:33 Absolute Neuts (auto) 4.1 K/mm3 (1.5-8.0) 02/04/20 06:33 Neutrophils % 58.1 % (42.8-82.8) D 02/04/20 06:33 Lymphocytes % 30.3 % (8-40) D 02/04/20 06:33 Monocytes % 9.5 % (3.8-10.2) 02/04/20 06:33 Eosinophils % 1.6 % (0-4.5) 02/04/20 06:33 Basophils % 0.5 % (0-2.0) 02/04/20 06:33 Nucleated RBC % 0 % (0-0) 02/04/20 06:33 Sodium 137 mmol/L (136-145) 02/04/20 06:33 Potassium 3.7 mmol/L (3.5-5.1) 02/04/20 06:33 Chloride 104 mmol/L (98-107) 02/04/20 06:33 Carbon Dioxide 23 mmol/L (21-32) 02/04/20 06:33 Anion Gap 9 MMOL/L (8-16) 02/04/20 06:33 BUN 7.3 mg/dL (7-18) 02/04/20 06:33 Creatinine 0.6 mg/dL (0.55-1.3) 02/04/20 06:33 Est GFR (CKD-EPI)AfAm 107.79 02/04/20 06:33 Est GFR (CKD-EPI)NonAf 93.00 02/04/20 06:33 Random Glucose 92 mg/dL (74-106) 02/04/20 06:33 Calcium 8.7 mg/dL (8.5-10.1) 02/04/20 06:33 Phosphorus 3.0 mg/dL (2.5-4.9) 02/04/20 06:33 Magnesium 1.7 mg/dL (1.8-2.4) L 02/04/20 06:33 Iron 50 ug/dL (50-175) 02/02/20 02:02 TIBC 341 ug/dL (250-450) 02/02/20 02:02 Iron Saturation 14 % (17.5-39) L 02/02/20 02:02 Unsaturated IBC 291 ug/dL (200-275) H 02/02/20 02:02 Ferritin 329.9 ng/ml (8-388) 02/02/20 02:02 Total Bilirubin 0.5 mg/dL (0.2-1) 02/03/20 05:28 AST 27 U/L (15-37) 02/03/20 05:28 ALT 33 U/L (13-61) 02/03/20 05:28 Alkaline Phosphatase 136 U/L (45-117) H 02/03/20 05:28 LD Total 253 U/L (84-246) H 02/02/20 02:02 Creatine Kinase 89 U/L (26-192) 02/02/20 11:08 Troponin I 0.10 ng/ml (0.00-0.05) H 02/02/20 11:08 C-Reactive Protein 0.7 MG/DL (0.00-0.3) H 02/02/20 02:02 Total Protein 6.3 g/dl (6.4-8.2) L 02/03/20 05:28 Albumin 3.3 g/dl (3.4-5.0) L 02/03/20 05:28 Lipase 67 U/L (73-393) L 02/02/20 02:02 Urine Color Yellow 02/03/20 23:25 Urine Appearance Clear 02/03/20 23:25 Urine pH 7.5 (5.0-8.0) D 02/03/20 23:25 Ur Specific [place] 1.004 (1.010-1.035) L 02/03/20 23:25 Urine Protein Negative (NEGATIVE) 02/03/20 23:25 Urine Glucose (UA) Negative (NEGATIVE) 02/03/20 23:25 Urine Ketones Negative (NEGATIVE) 02/03/20 23:25 Urine Blood Negative (NEGATIVE) 02/03/20 23:25 Urine Nitrite Negative (NEGATIVE) 02/03/20 23:25 Urine Bilirubin Negative (NEGATIVE) 02/03/20 23:25 Urine Urobilinogen 0.2 mg/dL (0.2-1.0) 02/03/20 23:25 Ur Leukocyte Esterase Negative (NEGATIVE) 02/03/20 23:25 COVID-19 (ANDRÉS) Not detected (Not Detected) 02/02/20 05:23 Active Medications Acetaminophen (Ofirmev Injection -) 1,000 mg IVPB Q6H PRN PRN Reason: PAIN LEVEL 7 - 10 Stop: 02/05/20 11:22 Last Admin: 02/04/20 11:25 Dose: 1,000 mg Documented by: Amlodipine Besylate (Norvasc -) 10 mg PO DAILY [facility] Last Admin: 02/04/20 09:03 Dose: 10 mg Documented by: Aspirin (Asa -) 81 mg PO DAILY [facility] Last Admin: 02/04/20 09:03 Dose: 81 mg Documented by: Baclofen (Lioresal -) 10 mg PO TID [facility] Baclofen (Lioresal -) 10 mg PO TID PRN PRN Reason: PAIN Brimonidine Tartrate (Alphagan 0.2% -) 1 drop OU DAILY [facility] Last Admin: 02/04/20 09:03 Dose: 1 drop Documented by: Carbamazepine (Tegretol -) 300 mg PO TID [facility] Last Admin: 02/04/20 13:30 Dose: 300 mg Documented by: Docusate Sodium (Colace Liquid -) 200 mg PO DAILY PRN PRN Reason: CONSTIPATION Last Admin: 02/04/20 09:10 Dose: 200 mg Documented by: Enoxaparin Sodium (Lovenox -) 40 mg SQ DAILY [facility] Last Admin: 02/04/20 09:03 Dose: 40 mg Documented by: Fenofibric Acid (Trilipix -) 135 mg PO DAILY [facility] Last Admin: 02/04/20 09:02 Dose: 135 mg Documented by: Gabapentin (Neurontin -) 800 mg PO TID [facility] Last Admin: 02/04/20 13:29 Dose: 800 mg Documented by: Sodium Chloride (Normal Saline -) 1,000 mls @ 100 mls/hr IV ASDIR [facility] Last Admin: 02/04/20 13:38 Dose: Not Given Documented by: Latanoprost (Xalatan 0.005% Eye Drops -) 1 drop OU HS [facility] Last Admin: 02/03/20 21:34 Dose: 1 drop Documented by: Metoprolol Succinate (Toprol Xl -) 12.5 mg PO DAILY [facility] Last Admin: 02/04/20 09:02 Dose: 12.5 mg Documented by: Oxycodone HCl (Roxicodone -) 5 mg PO Q4H PRN PRN Reason: PAIN LEVEL 1 - 6 Last Admin: 02/03/20 23:07 Dose: 5 mg Documented by: Oxycodone HCl (Roxicodone -) 10 mg PO Q4H PRN PRN Reason: PAIN LEVEL 7 - 10 Last Admin: 02/04/20 05:15 Dose: 10 mg Documented by: Timolol Maleate (Timoptic 0.5%) 1 drop OU DAILY [facility] Last Admin: 02/04/20 09:03 Dose: 1 drop Documented by: CXR 02/02 2 views of the chest reveal degenerative changes with wedging, weak inspiration, large heart, unfolded aorta and normal varinder. There is no sign of infiltrate or failure. The angles are sharp and the soft tissues are intact. There is a slight scoliosis with convexity to the right. Since 02/02/2020 the left base appears better aerated and an acute process is not seen. Correlation recommended. ASSESSMENT/PLAN: 69 year old F with PMH HTN and trigeminal neuralgia who presented to ED with dizziness and diplopia and worsening R-sided facial pain. Trigeminal Neuralgia - c/w carbamazepine 300 TID, gabapentin - s/p 10 mg dexamethasone w/o improvement of symptoms - Neuro consulted. Recommended start 1g fosphenytoin IV. If pain still not controlled, start baclofen - Started baclofen 10mg TID for today - Will start baclofen 10 mg TID PRN starting tomorrow. - c/w oxycodone - Start lidocaine gel TP, morphine, IV acetaminophen - Spoke to Dr. Martinez (neurosurgery at [place]) declining pt's transfer. - Pt is scheduled for future gamma knife surgery w/ neurosurgeon Dizziness - Brain MRI ordered. - Symptoms persist Elevated troponin w/o EKG changes - Troponin down-trended. - echo done. Notable for mild Mitral annular calcification, mild MR, mild TR, mild-mod pulmonic valvular regurgitation. No pericardial effusion. - Will need stress test. Leukocytosis - resolved - CXR as above. HTN - c/w ASA, metoprolol, amlodipine FEN -NS @ 100 - Monitor and replete electrolytes - Full liquid diet Ppx -DVT: Lovenox Visit type - Emergency Visit Emergency Visit: Yes ED Registration Date: 02/02/20 Care time: The patient presented to the Emergency Department on the above date and was hospitalized for further evaluation of their emergent condition. - New Patient This patient is new to me today: Yes Date on this admission: 02/04/20 - Critical Care Critical Care patient: No - Medication Review Med list reviewed for High Risk Meds patients 65 and older: Yes ATTENDING PHYSICIAN STATEMENT I saw and evaluated the patient. I reviewed the resident's note and discussed the case with the resident. I agree with the resident's findings and plan as documented. SUBJECTIVE: OBJECTIVE: ASSESSMENT AND PLAN:
--- NOTE | 2020-02-04 17:29 | PN ---
Progress Note (short form) - Note Progress Note: 69 year old female history of Trigeminal neuralgia and htn. She was seen with her boyfriend at bedside. She came with dizziness, and complaining of right face pain. Patient has history of right trigeminal neuralgia and has work up done in past. Patient describes this pain as very sharp pain shooting on right side of face. Patient has been scheduled for right gamma knife surgery. Patient is on gabapentin and cbz . She also takes percocet for pain control. Her pain has been worse, and dizziness and double vision has improved. She has no effect from steroid and waiting for iv phosphenytoin. NEUROLOGICAL EXAMINATION Alert oriented x 3, neck is supple eomi, pupils reactive on facial symmetry there is hypersensitivity to right side of face moving all ext sensation is normal A/P 1 . 69 year old female history of Trigeminal neuralgia and htn, cmplain of sever e dizziness, diplopia, suspect medication toxiicty ( cbz, gabapentin, oxycodone and flexeril) pateint was schedule to see neurosurgery and possible gamma knife surgery very soon --advice to cut down ton cbz, to 300 mg po bid as her pain is less concern ahd dizziness and diplopia is bigger concern --mri of brain pending, as could not go due to severe pain - Tring to [facility] for gamma knife surgery - iv Phosphenytoin 2. Dizziness - has improved after reducing dose of cbz Thanking you so much Harish Garcia MD
[2020-02-04] MEDS ORDERED: BACLOFEN 10 MG TABLET (FP) PO PRN (17:59)
[2020-02-04] MEDS: BACLOFEN 10 MG TABLET (FP) PO SCH (21:28)
[2020-02-04] MEDS: LATANOPROST 0.005% OPHTH SOLN 2.5ML BOTTLE OU SCH (21:35)
--- NOTE | 2020-02-04 21:56 | EKG ---
Test Reason : Blood Pressure : / mmHG Vent. Rate : 069 BPM Atrial Rate : 069 BPM P-R Int : 164 ms QRS Dur : 094 ms QT Int : 400 ms P-R-T Axes : 029 -30 049 degrees QTc Int : 428 ms NORMAL SINUS RHYTHM LEFT AXIS DEVIATION VOLTAGE CRITERIA FOR LEFT VENTRICULAR HYPERTROPHY ABNORMAL ECG WHEN COMPARED WITH ECG OF 27-NOV-2016 11:56, NO SIGNIFICANT CHANGE WAS FOUND Confirmed by ARNOLD MALAVE MD ([id number]) on 02/04/2020 9:56:24 PM Referred By: Confirmed By:ARNOLD MALAVE MD
[2020-02-05] MEDS: SODIUM CHLORIDE 1,000 ML IV SCH ×2 (04:28→13:41)
[2020-02-05] MEDS: GABAPENTIN 400 MG CAPSULE PO SCH ×3 (05:49→21:11)
[2020-02-05] MEDS: BACLOFEN 10 MG TABLET (FP) PO SCH ×4 (05:49→21:11)
[2020-02-05] MEDS: carBAMazepine 100 MG TAB.CHEW PO SCH ×3 (05:50→21:11)
[2020-02-05] MEDS: ACETAMINOPHEN 1000 MG/100 ML VIAL (NON FORMULARY) IVPB PRN (05:57)
--- NOTE | 2020-02-05 06:43 | PN ---
Progress Note (short form) - Note Progress Note: Chief Complaint: Events noted, notes reviewed, resting in bed, continues to report persistence of facial discomfort, denies any chest discomfort or dyspnea History of Present Illness: Seen and examined on telemetry. Events noted, notes reviewed, resting in bed, continues to report persistence of facial discomfort, denies any chest discomfort or dyspnea Echocardiography performed yesterday revealed normal ventricular size and systolic function with estimated LVEF between 60-65%, normal right ventricular size and systolic function, mild mitral and tricuspid valve regurgitation with calculated RVSP of 30 mmHg Medications: Current Medications Generic Name Dose Route Start Last Admin Trade Name Freq PRN Reason Stop Dose Admin Acetaminophen 1,000 mg 02/04/20 11:22 02/05/20 05:57 Ofirmev Injection - IVPB 02/05/20 11:22 1,000 mg Q6H PRN Administration PAIN LEVEL 7 - 10 Amlodipine Besylate 10 mg 02/03/20 13:03 02/04/20 09:03 Norvasc - PO 10 mg DAILY [facility] Administration Aspirin 81 mg 02/02/20 13:00 02/04/20 09:03 Asa - PO 81 mg DAILY [facility] Administration Baclofen 10 mg 02/04/20 22:00 02/05/20 05:49 Lioresal - PO 02/05/20 14:01 10 mg TID [facility] Administration Baclofen 10 mg 02/05/20 20:00 Lioresal - PO TID PRN PAIN Brimonidine Tartrate 1 drop 02/03/20 10:00 02/04/20 09:03 Alphagan 0.2% - OU 1 drop DAILY [facility] Administration Carbamazepine 300 mg 02/04/20 06:00 02/05/20 05:50 Tegretol - PO 300 mg TID [facility] Administration Docusate Sodium 200 mg 02/03/20 12:30 02/04/20 09:10 Colace Liquid - PO 200 mg DAILY PRN Administration CONSTIPATION Enoxaparin Sodium 40 mg 02/03/20 10:00 02/04/20 09:03 Lovenox - SQ 40 mg DAILY [facility] Administration Fenofibric Acid 135 mg 02/04/20 10:00 02/04/20 09:02 Trilipix - PO 135 mg DAILY [facility] Administration Gabapentin 800 mg 02/02/20 14:00 02/05/20 05:49 Neurontin - PO 800 mg TID [facility] Administration Sodium Chloride 1,000 mls @ 100 mls/hr 02/03/20 12:41 02/05/20 04:28 Normal Saline - IV 100 mls/hr ASDIR [facility] Administration Latanoprost 1 drop 02/02/20 22:00 02/04/20 21:35 Xalatan 0.005% Eye Drops - OU 1 drop HS [facility] Administration Metoprolol Succinate 12.5 mg 02/04/20 10:00 02/04/20 09:02 Toprol Xl - PO 12.5 mg DAILY [facility] Administration Oxycodone HCl 5 mg 02/02/20 11:15 02/03/20 23:07 Roxicodone - PO 5 mg Q4H PRN Administration PAIN LEVEL 1 - 6 Oxycodone HCl 10 mg 02/02/20 11:15 02/04/20 05:15 Roxicodone - PO 10 mg Q4H PRN Administration PAIN LEVEL 7 - 10 Timolol Maleate 1 drop 02/03/20 10:00 02/04/20 09:03 Timoptic 0.5% OU 1 drop DAILY [facility] Administration Review of Systems Constitutional: denies Chills or Fever Respiratory: denies: Dyspnea Cardiovascular: As noted above Gastrointestinal: denies Nausea, Vomiting, Diarrhea or Constipation or Abdominal Discomfort Genitourinary: denies: Hematuria Musculoskeletal: Persistent facial discomfort Vital Signs: Last Vital Signs Temp Pulse Resp BP Pulse Ox 98.5 F 82 21 H 154/82 98 02/05/20 06:00 02/05/20 06:00 02/05/20 06:00 02/05/20 06:00 02/05/20 02:00 Intake & Output 02/02/20 02/03/20 02/04/20 02/05/20 23:59 23:59 23:59 23:59 Intake Total 1365 2760 1420 Balance 1365 2760 1420 Weight 190 lb Neck: Supple Negative JVD Respiratory: Diminished Breath Sounds at the Bases Cardiovascular: S1 S2 Regular Rate Rhythm Gastrointestinal: Soft Benign Normal Bowel Sounds Ext: Negative Edema Labs: CBC, BMP 02/05/20 06:20 02/05/20 06:20 CBC, BMP 02/04/20 06:33 02/04/20 06:33 Hepatic Panel Total Bilirubin 0.5 mg/dL (0.2-1) 02/03/20 05:28 AST 27 U/L (15-37) 02/03/20 05:28 ALT 33 U/L (13-61) 02/03/20 05:28 Alkaline Phosphatase 136 U/L (45-117) H 02/03/20 05:28 Albumin 3.3 g/dl (3.4-5.0) L 02/03/20 05:28 Assessment/Plan ASSESSMENT: 1. Persistent facial discomfort related to trigeminal neuralgia with acute exacerbation 2. Coronary artery disease with evidence of demand ischemic injury 3. Hypertensive cardiovascular disease PLAN: 1. Pain management as per the primary team 2. Continue Toprol-XL therapy and dose titration as needed 3. Continue Norvasc therapy 4. Continue Ecotrin therapy 5. Additional intervention for the above-noted trigeminal neuralgia as planned at [facility]/outpatient procedure Noe Shultz MD
[2020-02-05 07:23] LABS: HEMATOCRIT 35.2 % (32.4-45.2); HEMOGLOBIN 11.6 GM/dL (10.7-15.3); MCH 27.5 pg (25.7-33.7); MCHC 32.9 g/dl (32.0-36.0); MEAN CELL VOLUME 83.6 fl (80-96); MEAN PLT VOLUME 9.9 fl (7.5-11.1); PLATELET COUNT 253 K/MM3 (134-434); RBC 4.21 M/mm3 (3.60-5.2); RDW 13.5 % (11.6-15.6); WHITE BLOOD COUNT 6.9 K/mm3 (4.0-10.0)
[2020-02-05 07:56] LABS: BLOOD UREA NITROGEN 6.6 mg/dL (7-18); CALCIUM 8.9 mg/dL (8.5-10.1); CREATININE 0.6 mg/dL (0.55-1.3); POTASSIUM 3.8 mmol/L (3.5-5.1)
[2020-02-05] MEDS: oxyCODONE HCL 5 MG TABLET PO PRN (09:15)
[2020-02-05] MEDS: TIMOLOL 0.5% OPHTHALMIC SOL 5 ML BOTTLE OU SCH (09:16)
[2020-02-05] MEDS: BRIMONIDINE TARTRATE 0.2% OPHTHALMIC 5 ML BOTTLE OU SCH (09:16)
[2020-02-05] MEDS: FENOFIBRIC ACID 135 MG CAP PO SCH (09:16)
[2020-02-05] MEDS: amLODIPine BESYLATE 5 MG TABLET (FP) PO SCH (09:16)
[2020-02-05] MEDS: ASPIRIN 81 MG CHEWABLE TABLETS PO SCH (09:16)
[2020-02-05] MEDS: ENOXAPARIN NA (PORCINE) 40 MG/0.4 ML DISP.SYRIN SQ SCH (09:16)
[2020-02-05] MEDS: metoPROLOL SUCCINATE 25 MG TAB.SR.24H (FP) PO SCH (09:17)
--- NOTE | 2020-02-05 09:55 | PN ---
Teaching Attending Note Name of Resident: Yael Dominguez ATTENDING PHYSICIAN STATEMENT I saw and evaluated the patient. I reviewed the resident's note and discussed the case with the resident. I agree with the resident's findings and plan as documented. SUBJECTIVE: CONTINUES TO HAVE SEVERE neuralgic pain right side of the face OBJECTIVE: Vital Signs Temperature 98.1 F 02/05/20 09:35 Pulse Rate 79 02/05/20 09:35 Respiratory Rate 22 H 02/05/20 09:35 Blood Pressure 177/95 H 02/05/20 09:35 O2 Sat by Pulse Oximetry (%) 98 02/05/20 09:35 PE: per resident's note right facial swelling CBCD WBC 6.9 K/mm3 (4.0-10.0) 02/05/20 06:20 RBC 4.21 M/mm3 (3.60-5.2) 02/05/20 06:20 Hgb 11.6 GM/dL (10.7-15.3) 02/05/20 06:20 Hct 35.2 % (32.4-45.2) 02/05/20 06:20 MCV 83.6 fl (80-96) 02/05/20 06:20 MCHC 32.9 g/dl (32.0-36.0) 02/05/20 06:20 RDW 13.5 % (11.6-15.6) 02/05/20 06:20 Plt Count 253 K/MM3 (134-434) 02/05/20 06:20 MPV 9.9 fl (7.5-11.1) 02/05/20 06:20 CMP Sodium 141 mmol/L (136-145) 02/05/20 06:20 Potassium 3.8 mmol/L (3.5-5.1) 02/05/20 06:20 Chloride 108 mmol/L (98-107) H 02/05/20 06:20 Carbon Dioxide 23 mmol/L (21-32) 02/05/20 06:20 Anion Gap 11 MMOL/L (8-16) 02/05/20 06:20 BUN 6.6 mg/dL (7-18) L 02/05/20 06:20 Creatinine 0.6 mg/dL (0.55-1.3) 02/05/20 06:20 Random Glucose 96 mg/dL (74-106) 02/05/20 06:20 Calcium 8.9 mg/dL (8.5-10.1) 02/05/20 06:20 Total Bilirubin 0.5 mg/dL (0.2-1) 02/03/20 05:28 AST 27 U/L (15-37) 02/03/20 05:28 ALT 33 U/L (13-61) 02/03/20 05:28 Alkaline Phosphatase 136 U/L (45-117) H 02/03/20 05:28 Total Protein 6.3 g/dl (6.4-8.2) L 02/03/20 05:28 Albumin 3.3 g/dl (3.4-5.0) L 02/03/20 05:28 CARDIAC ENZYMES Creatine Kinase 89 U/L (26-192) 02/02/20 11:08 Troponin I 0.10 ng/ml (0.00-0.05) H 02/02/20 11:08 Current Medications Generic Name Dose Route Start Last Admin Trade Name Freq PRN Reason Stop Dose Admin Acetaminophen 1,000 mg 02/04/20 11:22 02/05/20 05:57 Ofirmev Injection - IVPB 02/05/20 11:22 1,000 mg Q6H PRN Administration PAIN LEVEL 7 - 10 Amlodipine Besylate 10 mg 02/03/20 13:03 02/05/20 09:16 Norvasc - PO 10 mg DAILY [facility] Administration Aspirin 81 mg 02/02/20 13:00 02/05/20 09:16 Asa - PO 81 mg DAILY [facility] Administration Baclofen 10 mg 02/04/20 22:00 02/05/20 05:49 Lioresal - PO 02/05/20 14:01 10 mg TID [facility] Administration Baclofen 10 mg 02/05/20 20:00 Lioresal - PO TID PRN PAIN Brimonidine Tartrate 1 drop 02/03/20 10:00 02/05/20 09:16 Alphagan 0.2% - OU 1 drop DAILY [facility] Administration Carbamazepine 300 mg 02/04/20 06:00 02/05/20 05:50 Tegretol - PO 300 mg TID [facility] Administration Docusate Sodium 200 mg 02/03/20 12:30 02/04/20 09:10 Colace Liquid - PO 200 mg DAILY PRN Administration CONSTIPATION Enoxaparin Sodium 40 mg 02/03/20 10:00 02/05/20 09:16 Lovenox - SQ 40 mg DAILY [facility] Administration Fenofibric Acid 135 mg 02/04/20 10:00 02/05/20 09:16 Trilipix - PO 135 mg DAILY [facility] Administration Gabapentin 800 mg 02/02/20 14:00 02/05/20 05:49 Neurontin - PO 800 mg TID [facility] Administration Sodium Chloride 1,000 mls @ 100 mls/hr 02/03/20 12:41 02/05/20 04:28 Normal Saline - IV 100 mls/hr ASDIR [facility] Administration Latanoprost 1 drop 02/02/20 22:00 02/04/20 21:35 Xalatan 0.005% Eye Drops - OU 1 drop HS [facility] Administration Metoprolol Succinate 12.5 mg 02/04/20 10:00 02/05/20 09:17 Toprol Xl - PO 12.5 mg DAILY [facility] Administration Oxycodone HCl 5 mg 02/02/20 11:15 02/03/20 23:07 Roxicodone - PO 5 mg Q4H PRN Administration PAIN LEVEL 1 - 6 Oxycodone HCl 10 mg 02/02/20 11:15 02/05/20 09:15 Roxicodone - PO 10 mg Q4H PRN Administration PAIN LEVEL 7 - 10 Timolol Maleate 1 drop 02/03/20 10:00 02/05/20 09:16 Timoptic 0.5% OU 1 drop DAILY [facility] Administration Home Medications Medication Instructions Recorded Oxycodone HCl/Acetaminophen 1 tab PO Q4H PRN 10/13/16 [Percocet 5-325 mg Tablet] Amlodipine Besylate 10 mg PO DAILY 11/27/16 Brimonidine Tartrate/Timolol 1 drop OU HS 02/02/20 [Combigan 0.2%-0.5% Eye Drops] Carbamazepine 600 mg PO DAILY 02/02/20 Carbamazepine 600 mg PO HS 02/02/20 Gabapentin 300 mg PO Q8H 02/02/20 Travoprost 1 drop OU HS 02/02/20 Carbamazepine 300 mg PO DAILY@1900 02/03/20 Fenofibrate,Micronized 130 mg PO DAILY 02/03/20 [Fenofibrate] Head Ct: negative Facial BONE: no fx or acute bony abnormalities. ASSESSMENT AND PLAN: This patient is a 69yof with Pmhx of HTN , trigeminal neuralgia who presented with dizziness, diplopia and R sided facial pain. # Severe trigeminal neuralgia: CONTINUE carbamazepine 300 TID , cont neurontin , will give her a dose of motirn IV - dexamethasone did not help , added morphine , Lidoncaine gel topically trial - team spoke to Dr. Martinez, her treating MD , patient is accepted to [facility] will be transfer when approved by the insurance company. # dizziness, tremors, and diplopia: likely due to carbamazepine. dose decreased , MRI: patient is refusing since she has severe pain. #elevated trop: most likely demand ischemia; cont ASa, toprol , echo reviewed: EJF 60-65%, mild to moderate pulmonic valvular regurgitation, Mild MR, mild TR, stress test at some point once stable and her pain is controlled better. # Mild leukocytosis . resolved . no signs of infection # HTN : cont home norvasc at 10 mg and toprol. No orthostatic hypotension DVT px: Lovenox
--- NOTE | 2020-02-05 13:10 | PN ---
Physical Exam: SUBJECTIVE: Patient seen and examined. Pt stated pain and dizziness improved. Pt is able to speak today. Denies fevers, chills, shortness of breath, chest pain, abdominal pain, numbness or tingling. OBJECTIVE: Vital Signs Period Temp Pulse Resp BP Sys/Fofana Pulse Ox Last 24 Hr 98.1 F-98.5 F 63-82 18-22 141-177/71-95 96-98 GENERAL: Alert and oriented. Clutching R side face. In mild distress. HEENT: NCAT, EOMI. Pupils pinpoint, reactive to light. LUNGS: Equal breath sounds b/l. Clear to auscultation, no wheezes. HEART: Regular rate and rhythm. S1 and S2 present. No murmurs. ABDOMEN: Soft, non-distended, non-tender to palpation. Bowel sounds present. EXTREMITIES: Warm, well-perfused. NEUROLOGICAL: Sensation intact. Strength 5/5 b/l of UE and LE. Moving all extremities spontaneously. SKIN: No visible lesions seen. Warm, dry. Laboratory Last Values WBC 6.9 K/mm3 (4.0-10.0) 02/05/20 06:20 RBC 4.21 M/mm3 (3.60-5.2) 02/05/20 06:20 Hgb 11.6 GM/dL (10.7-15.3) 02/05/20 06:20 Hct 35.2 % (32.4-45.2) 02/05/20 06:20 MCV 83.6 fl (80-96) 02/05/20 06:20 MCH 27.5 pg (25.7-33.7) 02/05/20 06:20 MCHC 32.9 g/dl (32.0-36.0) 02/05/20 06:20 RDW 13.5 % (11.6-15.6) 02/05/20 06:20 Plt Count 253 K/MM3 (134-434) 02/05/20 06:20 MPV 9.9 fl (7.5-11.1) 02/05/20 06:20 Absolute Neuts (auto) 4.1 K/mm3 (1.5-8.0) 02/04/20 06:33 Neutrophils % 58.1 % (42.8-82.8) D 02/04/20 06:33 Lymphocytes % 30.3 % (8-40) D 02/04/20 06:33 Monocytes % 9.5 % (3.8-10.2) 02/04/20 06:33 Eosinophils % 1.6 % (0-4.5) 02/04/20 06:33 Basophils % 0.5 % (0-2.0) 02/04/20 06:33 Nucleated RBC % 0 % (0-0) 02/04/20 06:33 Sodium 141 mmol/L (136-145) 02/05/20 06:20 Potassium 3.8 mmol/L (3.5-5.1) 02/05/20 06:20 Chloride 108 mmol/L (98-107) H 02/05/20 06:20 Carbon Dioxide 23 mmol/L (21-32) 02/05/20 06:20 Anion Gap 11 MMOL/L (8-16) 02/05/20 06:20 BUN 6.6 mg/dL (7-18) L 02/05/20 06:20 Creatinine 0.6 mg/dL (0.55-1.3) 02/05/20 06:20 Est GFR (CKD-EPI)AfAm 107.79 02/05/20 06:20 Est GFR (CKD-EPI)NonAf 93.00 02/05/20 06:20 Random Glucose 96 mg/dL (74-106) 02/05/20 06:20 Calcium 8.9 mg/dL (8.5-10.1) 02/05/20 06:20 Phosphorus 3.0 mg/dL (2.5-4.9) 02/04/20 06:33 Magnesium 1.7 mg/dL (1.8-2.4) L 02/04/20 06:33 Iron 50 ug/dL (50-175) 02/02/20 02:02 TIBC 341 ug/dL (250-450) 02/02/20 02:02 Iron Saturation 14 % (17.5-39) L 02/02/20 02:02 Unsaturated IBC 291 ug/dL (200-275) H 02/02/20 02:02 Ferritin 329.9 ng/ml (8-388) 02/02/20 02:02 Total Bilirubin 0.5 mg/dL (0.2-1) 02/03/20 05:28 AST 27 U/L (15-37) 02/03/20 05:28 ALT 33 U/L (13-61) 02/03/20 05:28 Alkaline Phosphatase 136 U/L (45-117) H 02/03/20 05:28 LD Total 253 U/L (84-246) H 02/02/20 02:02 Creatine Kinase 89 U/L (26-192) 02/02/20 11:08 Troponin I 0.10 ng/ml (0.00-0.05) H 02/02/20 11:08 C-Reactive Protein 0.7 MG/DL (0.00-0.3) H 02/02/20 02:02 Total Protein 6.3 g/dl (6.4-8.2) L 02/03/20 05:28 Albumin 3.3 g/dl (3.4-5.0) L 02/03/20 05:28 Lipase 67 U/L (73-393) L 02/02/20 02:02 Urine Color Yellow 02/03/20 23:25 Urine Appearance Clear 02/03/20 23:25 Urine pH 7.5 (5.0-8.0) D 02/03/20 23:25 Ur Specific [place] 1.004 (1.010-1.035) L 02/03/20 23:25 Urine Protein Negative (NEGATIVE) 02/03/20 23:25 Urine Glucose (UA) Negative (NEGATIVE) 02/03/20 23:25 Urine Ketones Negative (NEGATIVE) 02/03/20 23:25 Urine Blood Negative (NEGATIVE) 02/03/20 23:25 Urine Nitrite Negative (NEGATIVE) 02/03/20 23:25 Urine Bilirubin Negative (NEGATIVE) 02/03/20 23:25 Urine Urobilinogen 0.2 mg/dL (0.2-1.0) 02/03/20 23:25 Ur Leukocyte Esterase Negative (NEGATIVE) 02/03/20 23:25 COVID-19 (ANDRÉS) Not detected (Not Detected) 02/02/20 05:23 Active Medications Amlodipine Besylate (Norvasc -) 10 mg PO DAILY [facility] Last Admin: 02/05/20 09:16 Dose: 10 mg Documented by: Aspirin (Asa -) 81 mg PO DAILY [facility] Last Admin: 02/05/20 09:16 Dose: 81 mg Documented by: Baclofen (Lioresal -) 10 mg PO TID [facility] Stop: 02/05/20 14:01 Last Admin: 02/05/20 12:25 Dose: 10 mg Documented by: Baclofen (Lioresal -) 10 mg PO TID PRN PRN Reason: PAIN Brimonidine Tartrate (Alphagan 0.2% -) 1 drop OU DAILY [facility] Last Admin: 02/05/20 09:16 Dose: 1 drop Documented by: Carbamazepine (Tegretol -) 300 mg PO TID [facility] Last Admin: 02/05/20 05:50 Dose: 300 mg Documented by: Docusate Sodium (Colace Liquid -) 200 mg PO DAILY PRN PRN Reason: CONSTIPATION Last Admin: 02/04/20 09:10 Dose: 200 mg Documented by: Enoxaparin Sodium (Lovenox -) 40 mg SQ DAILY [facility] Last Admin: 02/05/20 09:16 Dose: 40 mg Documented by: Fenofibric Acid (Trilipix -) 135 mg PO DAILY [facility] Last Admin: 02/05/20 09:16 Dose: 135 mg Documented by: Gabapentin (Neurontin -) 800 mg PO TID [facility] Last Admin: 02/05/20 05:49 Dose: 800 mg Documented by: Sodium Chloride (Normal Saline -) 1,000 mls @ 100 mls/hr IV ASDIR [facility] Last Admin: 02/05/20 04:28 Dose: 100 mls/hr Documented by: Latanoprost (Xalatan 0.005% Eye Drops -) 1 drop OU HS [facility] Last Admin: 02/04/20 21:35 Dose: 1 drop Documented by: Lidocaine HCl (Xylocaine 2% Jelly) 1 applic TP ONCE ONE Stop: 02/05/20 12:14 Metoprolol Succinate (Toprol Xl -) 12.5 mg PO DAILY [facility] Last Admin: 02/05/20 09:17 Dose: 12.5 mg Documented by: Timolol Maleate (Timoptic 0.5%) 1 drop OU DAILY [facility] Last Admin: 02/05/20 09:16 Dose: 1 drop Documented by: CXR 02/02 2 views of the chest reveal degenerative changes with wedging, weak inspiration, large heart, unfolded aorta and normal varinder. There is no sign of infiltrate or failure. The angles are sharp and the soft tissues are intact. There is a slight scoliosis with convexity to the right. Since 02/02/2020 the left base appears better aerated and an acute process is not seen. Correlation recommended. ASSESSMENT/PLAN: 69 year old F with PMH HTN and trigeminal neuralgia who presented to ED with dizziness and diplopia and worsening R-sided facial pain. Today, her facial pain has improved after receiving baclofen. Spoke to Dr. Martinez (neurosurgery from [place]) who will be accepting her to his service. Pending transfer. Trigeminal Neuralgia - c/w carbamazepine 300 TID, gabapentin - s/p 10 mg dexamethasone w/o improvement of symptoms - Discussed case with Neuro. Recommended d/c baclofen and start Dilantin 100 BID. - c/w lidocaine gel TP - Pt is scheduled for future gamma knife surgery w/ neurosurgeon - c/w baclofen and start IV motrin. Dizziness - Brain MRI ordered. - Symptoms improved after decreasing dose of carbamazepine Elevated troponin w/o EKG changes - Troponin down-trended. - echo done. Notable for mild Mitral annular calcification, mild MR, mild TR, mild-mod pulmonic valvular regurgitation. No pericardial effusion. - Will need stress test. F/u as outpatient. Constipation - c/w colace Leukocytosis - resolved - CXR as above. HTN - c/w ASA, metoprolol, amlodipine FEN -NS @ 100 - Monitor and replete electrolytes - Full liquid diet Ppx -DVT: Lovenox Dispo: Pending transfer to [place] under the service of Dr. Martinez (neurosurgery). Pt will receive gamma knife surgery at some point. Visit type - Emergency Visit Emergency Visit: Yes ED Registration Date: 02/02/20 Care time: The patient presented to the Emergency Department on the above date and was hospitalized for further evaluation of their emergent condition. - New Patient This patient is new to me today: No - Critical Care Critical Care patient: No - Medication Review Med list reviewed for High Risk Meds patients 65 and older: Yes ATTENDING PHYSICIAN STATEMENT I saw and evaluated the patient. I reviewed the resident's note and discussed the case with the resident. I agree with the resident's findings and plan as documented. SUBJECTIVE: OBJECTIVE: ASSESSMENT AND PLAN:
[2020-02-05] MEDS ORDERED: LIDOCAINE HCL 2% JELLY (5 ML/TUBE) TP ONE (14:00)
[2020-02-05] MEDS ORDERED: IBUPROFEN 800 MG/8 ML IJ IVPB PRN (15:36)
[2020-02-05] MEDS ORDERED: PT OWN MED DRAWER 7, Y5N ONE (15:49)
--- NOTE | 2020-02-05 17:30 | PN ---
Progress Note (short form) - Note Progress Note: 69 year old female history of Trigeminal neuralgia and htn. She was seen with her boyfriend at bedside. She came with dizziness, and complaining of right face pain. Patient has history of right trigeminal neuralgia and has work up done in past. Patient describes this pain as very sharp pain shooting on right side of face. Patient has been scheduled for right gamma knife surgery. Patient is on gabapentin and cbz . She also takes percocet for pain control. her pain was markedly improved with iv phosphenytoin NEUROLOGICAL EXAMINATION Alert oriented x 3, neck is supple eomi, pupils reactive on facial symmetry there is hypersensitivity to right side of face moving all ext sensation is normal A/P 1 . 69 year old female history of Trigeminal neuralgia and htn, cmplain of severe dizziness, diplopia, suspect medication toxiicty ( cbz, gabapentin, oxycodone and flexeril) pateint was schedule to see neurosurgery and possible gamma knife surgery very soon --advice to cut down ton cbz, to 300 mg po bid as her pain is less concern ahd dizziness and diplopia is bigger concern --mri of brain pending, as could not go due to severe pain - she has been accepte to [facility] - iv Phosphenytoin as improved her pain, and she can be given dilantin 100 mg po bid 2. Dizziness - has improved after reducing dose of cbz , continue same dose Thanking you so much Harish Garcia MD
[2020-02-05] MEDS ORDERED: BACLOFEN 10 MG TABLET (FP) PO PRN (20:00)
[2020-02-05] MEDS: IBUPROFEN 800 MG/8 ML IJ IVPB PRN (21:11)
[2020-02-05] MEDS: LATANOPROST 0.005% OPHTH SOLN 2.5ML BOTTLE OU SCH (21:32)
[2020-02-05] MEDS ORDERED: PHENYTOIN NA EXTENDED 100 MG CAPSULE (FP) PO SCH (22:00)
[2020-02-06] MEDS: IBUPROFEN 800 MG/8 ML IJ IVPB PRN ×3 (03:23→17:51)
--- NOTE | 2020-02-06 06:32 | PN ---
Progress Note (short form) - Note Progress Note: Chief Complaint: Events noted, notes reviewed, resting in bed, continues to report persistence of facial discomfort, denies any chest discomfort or dyspnea History of Present Illness: Seen and examined on telemetry. Events noted, notes reviewed, resting in bed, continues to report persistence of facial discomfort, denies any chest discomfort or dyspnea Echocardiography revealed normal ventricular size and systolic function with estimated LVEF between 60-65%, normal right ventricular size and systolic function, mild mitral and tricuspid valve regurgitation with calculated RVSP of 30 mmHg Medications: Current Medications Generic Name Dose Route Start Last Admin Trade Name Freq PRN Reason Stop Dose Admin Amlodipine Besylate 10 mg 02/03/20 13:03 02/05/20 09:16 Norvasc - PO 10 mg DAILY ROZ Administration Aspirin 81 mg 02/02/20 13:00 02/05/20 09:16 Asa - PO 81 mg DAILY ROZ Administration Baclofen 10 mg 02/05/20 22:00 02/05/20 21:11 Lioresal - PO 10 mg TID ROZ Administration Brimonidine Tartrate 1 drop 02/03/20 10:00 02/05/20 09:16 Alphagan 0.2% - OU 1 drop DAILY [facility] Administration Carbamazepine 300 mg 02/04/20 06:00 02/05/20 21:11 Tegretol - PO 300 mg TID ROZ Administration Docusate Sodium 200 mg 02/03/20 12:30 02/04/20 09:10 Colace Liquid - PO 200 mg DAILY PRN Administration CONSTIPATION Enoxaparin Sodium 40 mg 02/03/20 10:00 02/05/20 09:16 Lovenox - SQ 40 mg DAILY [facility]Z Administration Fenofibric Acid 135 mg 02/04/20 10:00 02/05/20 09:16 Trilipix - PO 135 mg DAILY [facility] Administration Gabapentin 800 mg 02/02/20 14:00 02/05/20 21:11 Neurontin - PO 800 mg TID ROZ Administration Sodium Chloride 1,000 mls @ 100 mls/hr 02/03/20 12:41 02/05/20 13:41 Normal Saline - IV Not Given ASDIR ROZ Ibuprofen 400 mg 02/05/20 19:01 02/06/20 03:23 Caldolor Injection - IVPB 400 mg Q6H PRN Administration PAIN LEVEL 1-5 Latanoprost 1 drop 02/02/20 22:00 02/05/20 21:32 Xalatan 0.005% Eye Drops - OU 1 drop HS [facility] Administration Metoprolol Succinate 12.5 mg 02/04/20 10:00 02/05/20 09:17 Toprol Xl - PO 12.5 mg DAILY [facility] Administration Timolol Maleate 1 drop 02/03/20 10:00 02/05/20 09:16 Timoptic 0.5% OU 1 drop DAILY [facility] Administration Review of Systems Constitutional: denies Chills or Fever Respiratory: denies: Dyspnea Cardiovascular: As noted above Gastrointestinal: denies Nausea, Vomiting, Diarrhea or Constipation or Abdominal Discomfort Genitourinary: denies: Hematuria Musculoskeletal: Persistent facial discomfort Vital Signs: Last Vital Signs Temp Pulse Resp BP Pulse Ox 97.9 F 66 18 136/69 95 02/06/20 02:00 02/06/20 02:00 02/06/20 02:00 02/06/20 02:00 02/06/20 02:00 Intake & Output 02/03/20 02/04/20 02/05/20 02/06/20 23:59 23:59 23:59 23:59 Intake Total 1365 2760 2540 Balance 1365 2760 2540 Neck: Supple Negative JVD Respiratory: Diminished Breath Sounds at the Bases Cardiovascular: S1 S2 Regular Rate Rhythm Gastrointestinal: Soft Benign Normal Bowel Sounds Ext: Negative Edema Labs: CBC, BMP 02/05/20 06:20 02/05/20 06:20 Hepatic Panel Total Bilirubin 0.5 mg/dL (0.2-1) 02/03/20 05:28 AST 27 U/L (15-37) 02/03/20 05:28 ALT 33 U/L (13-61) 02/03/20 05:28 Alkaline Phosphatase 136 U/L (45-117) H 02/03/20 05:28 Albumin 3.3 g/dl (3.4-5.0) L 02/03/20 05:28 Assessment/Plan ASSESSMENT: 1. Persistent facial discomfort related to trigeminal neuralgia with acute exacerbation 2. Coronary artery disease with evidence of demand ischemic injury 3. Hypertensive cardiovascular disease PLAN: 1. Pain management as per the primary team 2. Continue Toprol-XL therapy and dose titration as needed 3. Continue Norvasc therapy 4. Continue Ecotrin therapy 5. Additional intervention for the above-noted trigeminal neuralgia as planned at [facility]/outpatient procedure Patient can be transferred to floor care from the cardiovascular point of view or discharge home as per the primary team Noe Shultz MD
[2020-02-06] MEDS: GABAPENTIN 400 MG CAPSULE PO SCH ×3 (06:34→21:43)
[2020-02-06] MEDS: BACLOFEN 10 MG TABLET (FP) PO SCH ×3 (06:34→21:43)
[2020-02-06] MEDS: carBAMazepine 100 MG TAB.CHEW PO SCH ×3 (06:34→21:42)
[2020-02-06 08:16] LABS: BLOOD UREA NITROGEN 8.7 mg/dL (7-18); CALCIUM 9.4 mg/dL (8.5-10.1); CREATININE 0.6 mg/dL (0.55-1.3); POTASSIUM 3.7 mmol/L (3.5-5.1)
--- NOTE | 2020-02-06 08:37 | PN ---
Progress Note (short form) - Note Progress Note: 69 year old female history of Trigeminal neuralgia and htn. She was seen with her boyfriend at bedside. She came with dizziness, and complaining of right face pain. Patient has history of right trigeminal neuralgia and has work up done in past. Patient describes this pain as very sharp pain shooting on right side of face. Patient has been scheduled for right gamma knife surgery. Patient is on gabapentin and cbz . She also takes percocet for pain control. her pain was markedly improved with iv phosphenytoin , now pain is coming back. I suggest to give her iv phenytoin 200 mg iv bid NEUROLOGICAL EXAMINATION Alert oriented x 3, neck is supple eomi, pupils reactive on facial symmetry there is hypersensitivity to right side of face moving all ext sensation is normal A/P 1 . 69 year old female history of Trigeminal neuralgia and htn, cmplain of severe dizziness, diplopia, suspect medication toxiicty ( cbz, gabapentin, oxycodone and flexeril) pateint was schedule to see neurosurgery and possible gamma knife surgery very soon --dizzinss has improved and conitinue cbz and gabapentin at current dose --mri of brain pending, as could not go due to severe pain - she has been accepte to [facility] - phenytoin 200 mg iv bid 2. Dizziness - has improved after reducing dose of cbz , continue same dose Thanking you so much Harish Garcia MD
[2020-02-06] MEDS: ASPIRIN 81 MG CHEWABLE TABLETS PO SCH (09:53)
[2020-02-06] MEDS: metoPROLOL SUCCINATE 25 MG TAB.SR.24H (FP) PO SCH (09:53)
[2020-02-06] MEDS: amLODIPine BESYLATE 5 MG TABLET (FP) PO SCH (09:53)
[2020-02-06] MEDS: ENOXAPARIN NA (PORCINE) 40 MG/0.4 ML DISP.SYRIN SQ SCH (09:53)
[2020-02-06] MEDS: PHENYTOIN SODIUM 100 MG/2 ML VIAL IVPB SCH ×2 (09:54→21:43)
[2020-02-06] MEDS: FENOFIBRIC ACID 135 MG CAP PO SCH (09:55)
[2020-02-06] MEDS: TIMOLOL 0.5% OPHTHALMIC SOL 5 ML BOTTLE OU SCH (09:55)
[2020-02-06] MEDS: BRIMONIDINE TARTRATE 0.2% OPHTHALMIC 5 ML BOTTLE OU SCH (09:55)
[2020-02-06] MEDS: SODIUM CHLORIDE 1,000 ML IV SCH (12:40)
--- NOTE | 2020-02-06 14:30 | PN ---
Physical Exam: SUBJECTIVE: Patient seen and examined. As per night nurse, pt slept 1 hour and was crying throughout the night. Upon my evaluation, pt was clutching her R jaw and crying. She is refusing to speak due to pain. OBJECTIVE: Vital Signs Period Temp Pulse Resp BP Sys/Fofana Pulse Ox Last 24 Hr 97.8 F-98.3 F 66-75 18-20 136-174/69-106 95-98 GENERAL: Alert. Clutching R side face. In mild distress. HEENT: NCAT, EOMI. Pupils reactive to light b/l. LUNGS: Equal breath sounds b/l. Clear to auscultation, no wheezes. HEART: Regular rate and rhythm. S1 and S2 present. No murmurs. ABDOMEN: Soft, non-distended, non-tender to palpation. Bowel sounds present. EXTREMITIES: Warm, well-perfused. NEUROLOGICAL: Sensation intact. Strength 5/5 b/l of UE and LE. Moving all extremities spontaneously. SKIN: No visible lesions seen. Warm, dry. Laboratory Last Values WBC 6.9 K/mm3 (4.0-10.0) 02/05/20 06:20 RBC 4.21 M/mm3 (3.60-5.2) 02/05/20 06:20 Hgb 11.6 GM/dL (10.7-15.3) 02/05/20 06:20 Hct 35.2 % (32.4-45.2) 02/05/20 06:20 MCV 83.6 fl (80-96) 02/05/20 06:20 MCH 27.5 pg (25.7-33.7) 02/05/20 06:20 MCHC 32.9 g/dl (32.0-36.0) 02/05/20 06:20 RDW 13.5 % (11.6-15.6) 02/05/20 06:20 Plt Count 253 K/MM3 (134-434) 02/05/20 06:20 MPV 9.9 fl (7.5-11.1) 02/05/20 06:20 Absolute Neuts (auto) 4.1 K/mm3 (1.5-8.0) 02/04/20 06:33 Neutrophils % 58.1 % (42.8-82.8) D 02/04/20 06:33 Lymphocytes % 30.3 % (8-40) D 02/04/20 06:33 Monocytes % 9.5 % (3.8-10.2) 02/04/20 06:33 Eosinophils % 1.6 % (0-4.5) 02/04/20 06:33 Basophils % 0.5 % (0-2.0) 02/04/20 06:33 Nucleated RBC % 0 % (0-0) 02/04/20 06:33 Sodium 141 mmol/L (136-145) 02/06/20 06:18 Potassium 3.7 mmol/L (3.5-5.1) 02/06/20 06:18 Chloride 108 mmol/L (98-107) H 02/06/20 06:18 Carbon Dioxide 25 mmol/L (21-32) 02/06/20 06:18 Anion Gap 8 MMOL/L (8-16) 02/06/20 06:18 BUN 8.7 mg/dL (7-18) 02/06/20 06:18 Creatinine 0.6 mg/dL (0.55-1.3) 02/06/20 06:18 Est GFR (CKD-EPI)AfAm 107.79 02/06/20 06:18 Est GFR (CKD-EPI)NonAf 93.00 02/06/20 06:18 Random Glucose 75 mg/dL (74-106) 02/06/20 06:18 Calcium 9.4 mg/dL (8.5-10.1) 02/06/20 06:18 Phosphorus 3.0 mg/dL (2.5-4.9) 02/04/20 06:33 Magnesium 1.7 mg/dL (1.8-2.4) L 02/04/20 06:33 Iron 50 ug/dL (50-175) 02/02/20 02:02 TIBC 341 ug/dL (250-450) 02/02/20 02:02 Iron Saturation 14 % (17.5-39) L 02/02/20 02:02 Unsaturated IBC 291 ug/dL (200-275) H 02/02/20 02:02 Ferritin 329.9 ng/ml (8-388) 02/02/20 02:02 Total Bilirubin 0.5 mg/dL (0.2-1) 02/03/20 05:28 AST 27 U/L (15-37) 02/03/20 05:28 ALT 33 U/L (13-61) 02/03/20 05:28 Alkaline Phosphatase 136 U/L (45-117) H 02/03/20 05:28 LD Total 253 U/L (84-246) H 02/02/20 02:02 Creatine Kinase 89 U/L (26-192) 02/02/20 11:08 Troponin I 0.10 ng/ml (0.00-0.05) H 02/02/20 11:08 C-Reactive Protein 0.7 MG/DL (0.00-0.3) H 02/02/20 02:02 Total Protein 6.3 g/dl (6.4-8.2) L 02/03/20 05:28 Albumin 3.3 g/dl (3.4-5.0) L 02/03/20 05:28 Lipase 67 U/L (73-393) L 02/02/20 02:02 Urine Color Yellow 02/03/20 23:25 Urine Appearance Clear 02/03/20 23:25 Urine pH 7.5 (5.0-8.0) D 02/03/20 23:25 Ur Specific [place] 1.004 (1.010-1.035) L 02/03/20 23:25 Urine Protein Negative (NEGATIVE) 02/03/20 23:25 Urine Glucose (UA) Negative (NEGATIVE) 02/03/20 23:25 Urine Ketones Negative (NEGATIVE) 02/03/20 23:25 Urine Blood Negative (NEGATIVE) 02/03/20 23:25 Urine Nitrite Negative (NEGATIVE) 02/03/20 23:25 Urine Bilirubin Negative (NEGATIVE) 02/03/20 23:25 Urine Urobilinogen 0.2 mg/dL (0.2-1.0) 02/03/20 23:25 Ur Leukocyte Esterase Negative (NEGATIVE) 02/03/20 23:25 COVID-19 (ANDRÉS) Not detected (Not Detected) 02/02/20 05:23 Active Medications Amlodipine Besylate (Norvasc -) 10 mg PO DAILY [facility] Last Admin: 02/06/20 09:53 Dose: 10 mg Documented by: Aspirin (Asa -) 81 mg PO DAILY [facility] Last Admin: 02/06/20 09:53 Dose: 81 mg Documented by: Baclofen (Lioresal -) 10 mg PO TID [facility] Last Admin: 02/06/20 13:49 Dose: 10 mg Documented by: Brimonidine Tartrate (Alphagan 0.2% -) 1 drop OU DAILY [facility] Last Admin: 02/06/20 09:55 Dose: 1 drop Documented by: Carbamazepine (Tegretol -) 300 mg PO TID [facility] Last Admin: 02/06/20 13:48 Dose: 300 mg Documented by: Docusate Sodium (Colace Liquid -) 200 mg PO DAILY PRN PRN Reason: CONSTIPATION Last Admin: 02/04/20 09:10 Dose: 200 mg Documented by: Enoxaparin Sodium (Lovenox -) 40 mg SQ DAILY [facility] Last Admin: 02/06/20 09:53 Dose: 40 mg Documented by: Fenofibric Acid (Trilipix -) 135 mg PO DAILY [facility] Last Admin: 02/06/20 09:55 Dose: 135 mg Documented by: Gabapentin (Neurontin -) 800 mg PO TID [facility] Last Admin: 02/06/20 13:49 Dose: 800 mg Documented by: Sodium Chloride (Normal Saline -) 1,000 mls @ 100 mls/hr IV ASDIR [facility] Last Admin: 02/06/20 12:40 Dose: 100 mls/hr Documented by: Ibuprofen (Caldolor Injection -) 400 mg IVPB Q6H PRN PRN Reason: PAIN LEVEL 1-5 Last Admin: 02/06/20 09:50 Dose: 400 mg Documented by: Latanoprost (Xalatan 0.005% Eye Drops -) 1 drop OU HS [facility] Last Admin: 02/05/20 21:32 Dose: 1 drop Documented by: Metoprolol Succinate (Toprol Xl -) 12.5 mg PO DAILY [facility] Last Admin: 02/06/20 09:53 Dose: 12.5 mg Documented by: Phenytoin Sodium (Dilantin Injection -) 200 mg IVPB BID [facility] Last Admin: 02/06/20 09:54 Dose: 200 mg Documented by: Timolol Maleate (Timoptic 0.5%) 1 drop OU DAILY [facility] Last Admin: 02/06/20 09:55 Dose: 1 drop Documented by: CXR 02/02 2 views of the chest reveal degenerative changes with wedging, weak inspiration, large heart, unfolded aorta and normal varinder. There is no sign of infiltrate or failure. The angles are sharp and the soft tissues are intact. There is a slight scoliosis with convexity to the right. Since 02/02/2020 the left base appears better aerated and an acute process is not seen. Correlation recommended. ASSESSMENT/PLAN: 69 year old F with PMH HTN and trigeminal neuralgia who presented to ED with dizziness and diplopia and worsening R-sided facial pain. Today, her facial pain has improved after receiving baclofen. Spoke to Dr. Martinez (neurosurgery from [place]) who will be accepting her to his service. Pending insurance authorization for transfer. Trigeminal Neuralgia - c/w carbamazepine 300 TID, gabapentin - s/p 10 mg dexamethasone w/o improvement of symptoms - Discussed case with Neuro. Recommended phenytoin 200 mg IV BID. - c/w lidocaine gel TP - Pt is scheduled for future gamma knife surgery w/ neurosurgeon - c/w baclofen 10mg TID PRN and IV motrin PRN. Dizziness - Brain MRI ordered. - Symptoms improved after decreasing dose of carbamazepine. Elevated troponin w/o EKG changes - Troponin down-trended. - echo done. Notable for mild Mitral annular calcification, mild MR, mild TR, mild-mod pulmonic valvular regurgitation. No pericardial effusion. - Will need stress test at some point. F/u as outpatient. Constipation - c/w colace Leukocytosis - resolved - CXR as above. HTN - c/w ASA, metoprolol, amlodipine FEN -NS @ 100 - Monitor and replete electrolytes - Full liquid diet Ppx -DVT: Lovenox Family discussion: Called son 3 times. No answer on phone. Dispo: Pending insurance authorization for transfer to [place] under the service of Dr. Martinez (neurosurgery). Pt will receive gamma knife surgery at some point. Visit type - Emergency Visit Emergency Visit: Yes ED Registration Date: 02/02/20 Care time: The patient presented to the Emergency Department on the above date and was hospitalized for further evaluation of their emergent condition. - New Patient This patient is new to me today: No - Critical Care Critical Care patient: No - Medication Review Med list reviewed for High Risk Meds patients 65 and older: Yes ATTENDING PHYSICIAN STATEMENT I saw and evaluated the patient. I reviewed the resident's note and discussed the case with the resident. I agree with the resident's findings and plan as documented. SUBJECTIVE: OBJECTIVE: ASSESSMENT AND PLAN:
[2020-02-06] MEDS: DEXTROSE 5%-NORMAL SALINE 1,000 ML IV SCH (17:54)
--- NOTE | 2020-02-06 18:39 | PN ---
Teaching Attending Note Name of Resident: Yael Dominguez ATTENDING PHYSICIAN STATEMENT I saw and evaluated the patient. I reviewed the resident's note and discussed the case with the resident. I agree with the resident's findings and plan as documented. SUBJECTIVE: Patient continues to have severe pain. OBJECTIVE: Vital Signs Temperature 98.3 F 02/06/20 14:00 Pulse Rate 75 02/06/20 14:00 Respiratory Rate 18 02/06/20 10:00 Blood Pressure 164/106 H 02/06/20 14:00 O2 Sat by Pulse Oximetry (%) 98 02/06/20 10:00 PE: per resident's note CBCD WBC 6.9 K/mm3 (4.0-10.0) 02/05/20 06:20 RBC 4.21 M/mm3 (3.60-5.2) 02/05/20 06:20 Hgb 11.6 GM/dL (10.7-15.3) 02/05/20 06:20 Hct 35.2 % (32.4-45.2) 02/05/20 06:20 MCV 83.6 fl (80-96) 02/05/20 06:20 MCHC 32.9 g/dl (32.0-36.0) 02/05/20 06:20 RDW 13.5 % (11.6-15.6) 02/05/20 06:20 Plt Count 253 K/MM3 (134-434) 02/05/20 06:20 MPV 9.9 fl (7.5-11.1) 02/05/20 06:20 CMP Sodium 141 mmol/L (136-145) 02/06/20 06:18 Potassium 3.7 mmol/L (3.5-5.1) 02/06/20 06:18 Chloride 108 mmol/L (98-107) H 02/06/20 06:18 Carbon Dioxide 25 mmol/L (21-32) 02/06/20 06:18 Anion Gap 8 MMOL/L (8-16) 02/06/20 06:18 BUN 8.7 mg/dL (7-18) 02/06/20 06:18 Creatinine 0.6 mg/dL (0.55-1.3) 02/06/20 06:18 Random Glucose 75 mg/dL (74-106) 02/06/20 06:18 Calcium 9.4 mg/dL (8.5-10.1) 02/06/20 06:18 Total Bilirubin 0.5 mg/dL (0.2-1) 02/03/20 05:28 AST 27 U/L (15-37) 02/03/20 05:28 ALT 33 U/L (13-61) 02/03/20 05:28 Alkaline Phosphatase 136 U/L (45-117) H 02/03/20 05:28 Total Protein 6.3 g/dl (6.4-8.2) L 02/03/20 05:28 Albumin 3.3 g/dl (3.4-5.0) L 02/03/20 05:28 CARDIAC ENZYMES Creatine Kinase 89 U/L (26-192) 02/02/20 11:08 Troponin I 0.10 ng/ml (0.00-0.05) H 02/02/20 11:08 Current Medications Generic Name Dose Route Start Last Admin Trade Name Freq PRN Reason Stop Dose Admin Amlodipine Besylate 10 mg 02/03/20 13:03 02/06/20 09:53 Norvasc - PO 10 mg DAILY ROZ Administration Aspirin 81 mg 02/02/20 13:00 02/06/20 09:53 Asa - PO 81 mg DAILY ROZ Administration Baclofen 10 mg 02/05/20 22:00 02/06/20 13:49 Lioresal - PO 10 mg TID ROZ Administration Brimonidine Tartrate 1 drop 02/03/20 10:00 02/06/20 09:55 Alphagan 0.2% - OU 1 drop DAILY ROZ Administration Carbamazepine 300 mg 02/04/20 06:00 02/06/20 13:48 Tegretol - PO 300 mg TID ROZ Administration Docusate Sodium 200 mg 02/03/20 12:30 02/04/20 09:10 Colace Liquid - PO 200 mg DAILY PRN Administration CONSTIPATION Enoxaparin Sodium 40 mg 02/03/20 10:00 02/06/20 09:53 Lovenox - SQ 40 mg DAILY ROZ Administration Fenofibric Acid 135 mg 02/04/20 10:00 02/06/20 09:55 Trilipix - PO 135 mg DAILY ROZ Administration Gabapentin 800 mg 02/02/20 14:00 02/06/20 13:49 Neurontin - PO 800 mg TID ROZ Administration Dextrose/Sodium Chloride 1,000 mls @ 83 mls/hr 02/06/20 17:45 02/06/20 17:54 D5-Ns - IV 83 mls/hr ASDIR ROZ Administration Ibuprofen 400 mg 02/05/20 19:01 02/06/20 17:51 Caldolor Injection - IVPB 400 mg Q6H PRN Administration PAIN LEVEL 1-5 Latanoprost 1 drop 02/02/20 22:00 02/05/20 21:32 Xalatan 0.005% Eye Drops - OU 1 drop HS ROZ Administration Metoprolol Succinate 12.5 mg 02/04/20 10:00 02/06/20 09:53 Toprol Xl - PO 12.5 mg DAILY ROZ Administration Phenytoin Sodium 200 mg 02/06/20 10:00 02/06/20 09:54 Dilantin Injection - IVPB 200 mg BID ROZ Administration Timolol Maleate 1 drop 02/03/20 10:00 02/06/20 09:55 Timoptic 0.5% OU 1 drop DAILY ROZ Administration Home Medications Medication Instructions Recorded Oxycodone HCl/Acetaminophen 1 tab PO Q4H PRN 10/13/16 [Percocet 5-325 mg Tablet] Amlodipine Besylate 10 mg PO DAILY 11/27/16 Brimonidine Tartrate/Timolol 1 drop OU HS 02/02/20 [Combigan 0.2%-0.5% Eye Drops] Carbamazepine 600 mg PO DAILY 02/02/20 Carbamazepine 600 mg PO HS 02/02/20 Gabapentin 300 mg PO Q8H 02/02/20 Travoprost 1 drop OU HS 02/02/20 Carbamazepine 300 mg PO DAILY@1900 02/03/20 Fenofibrate,Micronized 130 mg PO DAILY 02/03/20 [Fenofibrate] Head Ct: negative Facial BONE: no fx or acute bony abnormalities. ASSESSMENT AND PLAN: This patient is a 69yof with Pmhx of HTN , trigeminal neuralgia who presented with dizziness, diplopia and R sided facial pain. # Severe trigeminal neuralgia: CONTINUE carbamazepine 300 TID , cont neurontin ,added Phenytoin as per neurologist , added motrin IV 400mg q6h, Dexamethasone g iven but did not help , added morphine , Lidoncaine gel topical, called Dr. Martinez's office again; for transfer to [facility] , patient is accepted to [facility] will be transfer when approved by the insurance company. # dizziness, tremors, and diplopia: improved ; likely due to carbamazepine. dose decreased , MRI: patient is refusing since she has severe pain. #elevated trop: most likely demand ischemia; cont ASa, toprol , echo reviewed: EJF 60-65%, mild to moderate pulmonic valvular regurgitation, Mild MR, mild TR, stress test at some point once stable and her pain is controlled better. # Mild leukocytosis . resolved . no signs of infection # HTN : cont home norvasc at 10 mg and toprol. No orthostatic hypotension DVT px: Lovenox i
[2020-02-06] MEDS: LATANOPROST 0.005% OPHTH SOLN 2.5ML BOTTLE OU SCH (21:43)
[2020-02-06] MEDS ORDERED: MORPHINE SULFATE 2 MG/ML VIAL IVPUSH ONE (22:48)
[2020-02-07] MEDS ORDERED: MORPHINE SULFATE 2 MG/ML VIAL IVPUSH ONE (03:30)
[2020-02-07] MEDS: IBUPROFEN 800 MG/8 ML IJ IVPB PRN (03:42)
[2020-02-07] MEDS: GABAPENTIN 400 MG CAPSULE PO SCH (06:54)
[2020-02-07] MEDS: carBAMazepine 100 MG TAB.CHEW PO SCH (06:54)
[2020-02-07] MEDS: BACLOFEN 10 MG TABLET (FP) PO SCH ×3 (06:54→21:28)
[2020-02-07 07:35] LABS: BLOOD UREA NITROGEN 8.2 mg/dL (7-18); CALCIUM 8.7 mg/dL (8.5-10.1); CREATININE 0.7 mg/dL (0.55-1.3); POTASSIUM 3.7 mmol/L (3.5-5.1)
[2020-02-07] MEDS ORDERED: GABAPENTIN 400 MG CAPSULE PO SCH (09:24)
[2020-02-07] MEDS: PHENYTOIN SODIUM 100 MG/2 ML VIAL IVPB SCH (09:46)
[2020-02-07] MEDS ORDERED: PT OWN MED DRAWER 7, Y5N ONE (09:50)
[2020-02-07] MEDS: ENOXAPARIN NA (PORCINE) 40 MG/0.4 ML DISP.SYRIN SQ SCH (10:00)
[2020-02-07] MEDS ORDERED: carBAMazepine 200 MG TABLET PO SCH ×2 (10:00→22:00)
[2020-02-07] MEDS: FENOFIBRIC ACID 135 MG CAP PO SCH (10:00)
[2020-02-07] MEDS: ASPIRIN 81 MG CHEWABLE TABLETS PO SCH (10:01)
[2020-02-07] MEDS: amLODIPine BESYLATE 5 MG TABLET (FP) PO SCH (10:02)
[2020-02-07] MEDS: TIMOLOL 0.5% OPHTHALMIC SOL 5 ML BOTTLE OU SCH (10:03)
[2020-02-07] MEDS: BRIMONIDINE TARTRATE 0.2% OPHTHALMIC 5 ML BOTTLE OU SCH (10:03)
[2020-02-07] MEDS: metoPROLOL SUCCINATE 25 MG TAB.SR.24H (FP) PO SCH (10:03)
[2020-02-07] MEDS: IBUPROFEN 800 MG/8 ML IJ IVPB SCH ×3 (10:06→21:27)
[2020-02-07] MEDS ORDERED: HYDROmorphone HCl 2 MG/ML VIAL IVPUSH PRN (10:17)
[2020-02-07] MEDS ORDERED: FOSPHENYTOIN SODIUM 500 MG in SODIUM CHLORIDE 100 ML IVPB ONE ×2 (10:38→11:15)
[2020-02-07] MEDS ORDERED: FOSPHENYTOIN SODIUM 100 MG/2 ML VIAL IVPB SCH (10:45)
--- NOTE | 2020-02-07 11:25 | PN ---
Progress Note (short form) - Note Progress Note: 69 year old female history of Trigeminal neuralgia and htn. She was seen with her boyfriend at bedside. She came with dizziness, and complaining of right face pain. Patient has history of right trigeminal neuralgia and has work up done in past. Patient describes this pain as very sharp pain shooting on right side of face. Patient has been scheduled for right gamma knife surgery. Patient is on gabapentin and cbz . She also takes percocet for pain control. she still continue to have severe pain and iv cerebryx has helped her more, I woudl switched. because of insurance she could not be trasnfereed. NEUROLOGICAL EXAMINATION Alert oriented x 3, neck is supple eomi, pupils reactive on facial symmetry there is hypersensitivity to right side of face moving all ext sensation is normal A/P 1 . 69 year old female history of Trigeminal neuralgia and htn, cmplain of severe dizziness, diplopia, suspect medication toxiicty ( cbz, gabapentin, oxycodone and flexeril) pateint was schedule to see neurosurgery and possible gamma knife surgery very soon --dizzinss has improved and conitinue cbz and gabapentin at current dose --mri of brain pending, as could not go due to severe pain - she has been accepte to [place] - phsophenytoin 500 mg iv once and than 200 mg iv bid 2. Dizziness - has improved after reducing dose of cbz , continue same dose Thanking you so much Harish Garcia MD
--- NOTE | 2020-02-07 13:17 | PN ---
Progress Note, Physician Chief Complaint: Events noted Persistent pain due to trigeminal neuralgia History of Present Illness: Patient was seen and examined. Awake and alert. Chart was reviewed Denies chest pain, SOB or palpitations - Current Medication List Current Medications: Active Medications Amlodipine Besylate (Norvasc -) 10 mg PO DAILY [facility] Last Admin: 02/07/20 10:02 Dose: 10 mg Documented by: Aspirin (Asa -) 81 mg PO DAILY [facility] Last Admin: 02/07/20 10:01 Dose: 81 mg Documented by: Baclofen (Lioresal -) 10 mg PO TID [facility] Last Admin: 02/07/20 06:54 Dose: Not Given Documented by: Brimonidine Tartrate (Alphagan 0.2% -) 1 drop OU DAILY [facility] Last Admin: 02/07/20 10:03 Dose: 1 drop Documented by: Carbamazepine (Tegretol -) 600 mg PO DAILY [facility] Last Admin: 02/07/20 10:02 Dose: 600 mg Documented by: Carbamazepine (Tegretol -) 600 mg PO [facility] Docusate Sodium (Colace Liquid -) 200 mg PO DAILY PRN PRN Reason: CONSTIPATION Last Admin: 02/04/20 09:10 Dose: 200 mg Documented by: Enoxaparin Sodium (Lovenox -) 40 mg SQ DAILY [facility] Last Admin: 02/07/20 10:00 Dose: 40 mg Documented by: Fenofibric Acid (Trilipix -) 135 mg PO DAILY [facility] Last Admin: 02/07/20 10:00 Dose: 135 mg Documented by: Gabapentin 900 mg/ Gabapentin (100 mg) 1,000 mg PO TID [facility] Hydromorphone HCl (Dilaudid Vial -) 0.5 mg IVPUSH Q3H PRN PRN Reason: PAIN LEVEL 7 - 10 Last Admin: 02/07/20 10:31 Dose: 0.5 mg Documented by: Dextrose/Sodium Chloride (D5-Ns -) 1,000 mls @ 83 mls/hr IV ASDIR [facility] Last Admin: 02/06/20 17:54 Dose: 83 mls/hr Documented by: Fosphenytoin Sodium 200 mg/ (Sodium Chloride) 104 mls @ 208 mls/hr IVPB BID [facility] Ibuprofen (Caldolor Injection -) 400 mg IVPB Q6H [facility] Stop: 02/08/20 09:29 Last Admin: 02/07/20 10:06 Dose: 400 mg Documented by: Latanoprost (Xalatan 0.005% Eye Drops -) 1 drop OU HS [facility] Last Admin: 02/06/20 21:43 Dose: 1 drop Documented by: Metoprolol Succinate (Toprol Xl -) 12.5 mg PO DAILY [facility] Last Admin: 02/07/20 10:03 Dose: 12.5 mg Documented by: Timolol Maleate (Timoptic 0.5%) 1 drop OU DAILY [facility] Last Admin: 02/07/20 10:03 Dose: 1 drop Documented by: - Objective Vital Signs: Vital Signs Temperature 98.3 F 02/07/20 10:00 Pulse Rate 68 02/07/20 10:00 Respiratory Rate 20 02/07/20 10:00 Blood Pressure 165/83 02/07/20 10:00 O2 Sat by Pulse Oximetry (%) 99 02/07/20 09:00 Neck: Yes: Supple Cardiovascular: Yes: Regular Rate and Rhythm, S1, S2 Respiratory: Yes: Diminished Gastrointestinal: Yes: Normal Bowel Sounds, Soft. No: Tenderness Edema: No Additional Findings/Remarks: - Review of Systems Constitutional: denies: Chills, Fever Cardiovascular: denies Chest Pain, Shortness of Breath. denies: Palpitations Respiratory: denies: Cough, Hemoptysis, Orthopnea, PND Gastrointestinal: denies: Abdominal Pain, Constipation, Diarrhea, Melena, Nausea, Rectal Bleeding, Vomiting Genitourinary: denies: Dysuria, Hematuria Musculoskeletal: denies: Back Pain, Joint Pain Neurological: denies: Dizziness, Headache, Seizure, Syncope Labs: CBC, BMP 02/05/20 06:20 02/07/20 05:27 Problem List - Problems (1) Demand ischemia Code(s): I24.8 - OTHER FORMS OF ACUTE ISCHEMIC HEART DISEASE (2) Hypertensive heart disease Code(s): I11.9 - HYPERTENSIVE HEART DISEASE WITHOUT HEART FAILURE Qualifiers: Heart failure presence: without heart failure Qualified Code(s): I11.9 - Hypertensive heart disease without heart failure (3) Trigeminal neuralgia of right side of face Code(s): G50.0 - TRIGEMINAL NEURALGIA Assessment/Plan 1. Trigeminal neuralgia flare refractory to medications, persistent facial discomfort 2. Hypertensive heart disease 3. Demand ischemia suggests CAD PLAN: 1. Continue Norvasc 10 mg QD and Toprol 12.5 mg QD 2. Pain management 3. Additional intervention for trigeminal neuralgia as planned at [facility] with Dr. Grupo Martinez of Neurosurgery Further plans are to follow. Transfer to floor care Valentin Goldberg MD
[2020-02-07] MEDS ORDERED: GABAPENTIN 100 MG CAPSULE ONE ×2 (14:26→21:02)
[2020-02-07] MEDS ORDERED: GABAPENTIN 300 MG CAPSULE ONE ×2 (14:26→21:02)
[2020-02-07] MEDS: GABAPENTIN PO SCH ×2 (14:29→21:28)
--- NOTE | 2020-02-07 16:57 | PN ---
Teaching Attending Note Name of Resident: Yael Dominguez ATTENDING PHYSICIAN STATEMENT I saw and evaluated the patient. I reviewed the resident's note and discussed the case with the resident. I agree with the resident's findings and plan as documented. SUBJECTIVE: Patient is crying due to having severe pain. OBJECTIVE: Vital Signs Temperature 98.2 F 02/07/20 14:00 Pulse Rate 59 L 02/07/20 14:00 Respiratory Rate 20 02/07/20 10:00 Blood Pressure 137/65 02/07/20 14:00 O2 Sat by Pulse Oximetry (%) 99 02/07/20 09:00 PE:per resident's note mild swelling of right sided of the face CBCD WBC 6.9 K/mm3 (4.0-10.0) 02/05/20 06:20 RBC 4.21 M/mm3 (3.60-5.2) 02/05/20 06:20 Hgb 11.6 GM/dL (10.7-15.3) 02/05/20 06:20 Hct 35.2 % (32.4-45.2) 02/05/20 06:20 MCV 83.6 fl (80-96) 02/05/20 06:20 MCHC 32.9 g/dl (32.0-36.0) 02/05/20 06:20 RDW 13.5 % (11.6-15.6) 02/05/20 06:20 Plt Count 253 K/MM3 (134-434) 02/05/20 06:20 MPV 9.9 fl (7.5-11.1) 02/05/20 06:20 CMP Sodium 142 mmol/L (136-145) 02/07/20 05:27 Potassium 3.7 mmol/L (3.5-5.1) 02/07/20 05:27 Chloride 109 mmol/L (98-107) H 02/07/20 05:27 Carbon Dioxide 23 mmol/L (21-32) 02/07/20 05:27 Anion Gap 10 MMOL/L (8-16) 02/07/20 05:27 BUN 8.2 mg/dL (7-18) 02/07/20 05:27 Creatinine 0.7 mg/dL (0.55-1.3) 02/07/20 05:27 Random Glucose 98 mg/dL (74-106) 02/07/20 05:27 Calcium 8.7 mg/dL (8.5-10.1) 02/07/20 05:27 Total Bilirubin 0.5 mg/dL (0.2-1) 02/03/20 05:28 AST 27 U/L (15-37) 02/03/20 05:28 ALT 33 U/L (13-61) 02/03/20 05:28 Alkaline Phosphatase 136 U/L (45-117) H 02/03/20 05:28 Total Protein 6.3 g/dl (6.4-8.2) L 02/03/20 05:28 Albumin 3.3 g/dl (3.4-5.0) L 02/03/20 05:28 CARDIAC ENZYMES Creatine Kinase 89 U/L (26-192) 02/02/20 11:08 Troponin I 0.10 ng/ml (0.00-0.05) H 02/02/20 11:08 Current Medications Generic Name Dose Route Start Last Admin Trade Name Bryanq PRN Reason Stop Dose Admin Amlodipine Besylate 10 mg 02/03/20 13:03 02/07/20 10:02 Norvasc - PO 10 mg DAILY ROZ Administration Aspirin 81 mg 02/02/20 13:00 02/07/20 10:01 Asa - PO 81 mg DAILY ROZ Administration Baclofen 10 mg 02/05/20 22:00 02/07/20 14:29 Lioresal - PO 10 mg TID ROZ Administration Brimonidine Tartrate 1 drop 02/03/20 10:00 02/07/20 10:03 Alphagan 0.2% - OU 1 drop DAILY ROZ Administration Carbamazepine 600 mg 02/07/20 10:00 02/07/20 10:02 Tegretol - PO 600 mg DAILY ROZ Administration Carbamazepine 600 mg 02/07/20 22:00 Tegretol - PO HS ROZ Docusate Sodium 200 mg 02/03/20 12:30 02/04/20 09:10 Colace Liquid - PO 200 mg DAILY PRN Administration CONSTIPATION Enoxaparin Sodium 40 mg 02/03/20 10:00 02/07/20 10:00 Lovenox - SQ 40 mg DAILY ROZ Administration Fenofibric Acid 135 mg 02/04/20 10:00 02/07/20 10:00 Trilipix - PO 135 mg DAILY ROZ Administration Gabapentin 900 mg/ Gabapentin 1,000 mg 02/07/20 14:00 02/07/20 14:29 100 mg PO 1,000 mg TID ROZ Administration Hydromorphone HCl 0.5 mg 02/07/20 10:17 02/07/20 10:31 Dilaudid Vial - IVPUSH 0.5 mg Q3H PRN Administration PAIN LEVEL 7 - 10 Dextrose/Sodium Chloride 1,000 mls @ 83 mls/hr 02/06/20 17:45 02/06/20 17:54 D5-Ns - IV 83 mls/hr ASDIR ROZ Administration Fosphenytoin Sodium 200 mg/ 104 mls @ 208 mls/hr 02/07/20 22:00 Sodium Chloride IVPB BID ROZ Ibuprofen 400 mg 02/07/20 09:30 02/07/20 10:06 Caldolor Injection - IVPB 02/08/20 09:29 400 mg Q6H ROZ Administration Latanoprost 1 drop 02/02/20 22:00 02/06/20 21:43 Xalatan 0.005% Eye Drops - OU 1 drop HS ROZ Administration Metoprolol Succinate 12.5 mg 02/04/20 10:00 02/07/20 10:03 Toprol Xl - PO 12.5 mg DAILY ROZ Administration Timolol Maleate 1 drop 02/03/20 10:00 02/07/20 10:03 Timoptic 0.5% OU 1 drop DAILY ROZ Administration Home Medications Medication Instructions Recorded Oxycodone HCl/Acetaminophen 1 tab PO Q4H PRN 10/13/16 [Percocet 5-325 mg Tablet] Amlodipine Besylate 10 mg PO DAILY 11/27/16 Brimonidine Tartrate/Timolol 1 drop OU HS 02/02/20 [Combigan 0.2%-0.5% Eye Drops] Carbamazepine 600 mg PO DAILY 02/02/20 Carbamazepine 600 mg PO HS 02/02/20 Gabapentin 300 mg PO Q8H 02/02/20 Travoprost 1 drop OU HS 02/02/20 Carbamazepine 300 mg PO DAILY@1900 02/03/20 Fenofibrate,Micronized 130 mg PO DAILY 02/03/20 [Fenofibrate] Head Ct: negative Facial BONE: no fx or acute bony abnormalities. ASSESSMENT AND PLAN: This patient is a 69yof with Pmhx of HTN , trigeminal neuralgia who presented with dizziness, diplopia and R sided facial pain. # Severe trigeminal neuralgia: CONTINUE carbamazepine 300 TID , cont neurontin increased the dose to 1k tid ,added Phenytoin as per neurologist , added motrin IV 400mg q6h, Dexamethasone given but did not help , added morphine IV, Lidoncaine gel topical, called Dr. Martinez's office again; for transfer to [facility] , patient is accepted to [facility] will be transfer when ok by the insurance company. # dizziness, tremors, and diplopia: improved ; likely due to carbamazepine. dose decreased , MRI: patient is refusing since she has severe pain. #elevated trop: most likely demand ischemia; cont ASa, toprol , echo reviewed: EJF 60-65%, mild to moderate pulmonic valvular regurgitation, Mild MR, mild TR, stress test at some point once stable and her pain is controlled better. # Mild leukocytosis . resolved . no signs of infection # HTN : cont home norvasc at 10 mg and toprol. No orthostatic hypotension DVT px: Lovenox increased the dose of gabapentin to 1k tid , added IV morphine , standing dose motrin IV Patient has been scheduled for right gamma knife surgery once arrives at [facility].
[2020-02-07] MEDS: DEXTROSE 5%-NORMAL SALINE 1,000 ML IV SCH (17:02)
--- NOTE | 2020-02-07 17:30 | PN ---
Physical Exam: SUBJECTIVE: Patient seen and examined. Pt was crying overnight. As per nurse, she did not sleep due to pain. Pt was groaning throughout the evening. Upon my evaluation, pt wrote on paper "Pain is worse. I need strong medication". OBJECTIVE: Vital Signs Period Temp Pulse Resp BP Sys/Fofana Pulse Ox Last 24 Hr 98.2 F-98.6 F 59-77 20-20 137-178/65-93 98-99 GENERAL: Alert. Clutching R side face. In acute distress. HEENT: NCAT, EOMI. Pupils reactive to light b/l. LUNGS: Equal breath sounds b/l. Clear to auscultation, no wheezes. HEART: Regular rate and rhythm. S1 and S2 present. No murmurs. ABDOMEN: Soft, non-distended, non-tender to palpation. Bowel sounds present. EXTREMITIES: Warm, well-perfused. NEUROLOGICAL: Sensation intact. Strength 5/5 b/l of UE and LE. Moving all extremities spontaneously. SKIN: No visible lesions seen. Warm, dry. Laboratory Last Values WBC 6.9 K/mm3 (4.0-10.0) 02/05/20 06:20 RBC 4.21 M/mm3 (3.60-5.2) 02/05/20 06:20 Hgb 11.6 GM/dL (10.7-15.3) 02/05/20 06:20 Hct 35.2 % (32.4-45.2) 02/05/20 06:20 MCV 83.6 fl (80-96) 02/05/20 06:20 MCH 27.5 pg (25.7-33.7) 02/05/20 06:20 MCHC 32.9 g/dl (32.0-36.0) 02/05/20 06:20 RDW 13.5 % (11.6-15.6) 02/05/20 06:20 Plt Count 253 K/MM3 (134-434) 02/05/20 06:20 MPV 9.9 fl (7.5-11.1) 02/05/20 06:20 Absolute Neuts (auto) 4.1 K/mm3 (1.5-8.0) 02/04/20 06:33 Neutrophils % 58.1 % (42.8-82.8) D 02/04/20 06:33 Lymphocytes % 30.3 % (8-40) D 02/04/20 06:33 Monocytes % 9.5 % (3.8-10.2) 02/04/20 06:33 Eosinophils % 1.6 % (0-4.5) 02/04/20 06:33 Basophils % 0.5 % (0-2.0) 02/04/20 06:33 Nucleated RBC % 0 % (0-0) 02/04/20 06:33 Sodium 142 mmol/L (136-145) 02/07/20 05:27 Potassium 3.7 mmol/L (3.5-5.1) 02/07/20 05:27 Chloride 109 mmol/L (98-107) H 02/07/20 05:27 Carbon Dioxide 23 mmol/L (21-32) 02/07/20 05:27 Anion Gap 10 MMOL/L (8-16) 02/07/20 05:27 BUN 8.2 mg/dL (7-18) 02/07/20 05:27 Creatinine 0.7 mg/dL (0.55-1.3) 02/07/20 05:27 Est GFR (CKD-EPI)AfAm 102.46 02/07/20 05:27 Est GFR (CKD-EPI)NonAf 88.40 02/07/20 05:27 Random Glucose 98 mg/dL (74-106) 02/07/20 05:27 Calcium 8.7 mg/dL (8.5-10.1) 02/07/20 05:27 Phosphorus 3.0 mg/dL (2.5-4.9) 02/04/20 06:33 Magnesium 1.7 mg/dL (1.8-2.4) L 02/04/20 06:33 Iron 50 ug/dL (50-175) 02/02/20 02:02 TIBC 341 ug/dL (250-450) 02/02/20 02:02 Iron Saturation 14 % (17.5-39) L 02/02/20 02:02 Unsaturated IBC 291 ug/dL (200-275) H 02/02/20 02:02 Ferritin 329.9 ng/ml (8-388) 02/02/20 02:02 Total Bilirubin 0.5 mg/dL (0.2-1) 02/03/20 05:28 AST 27 U/L (15-37) 02/03/20 05:28 ALT 33 U/L (13-61) 02/03/20 05:28 Alkaline Phosphatase 136 U/L (45-117) H 02/03/20 05:28 LD Total 253 U/L (84-246) H 02/02/20 02:02 Creatine Kinase 89 U/L (26-192) 02/02/20 11:08 Troponin I 0.10 ng/ml (0.00-0.05) H 02/02/20 11:08 C-Reactive Protein 0.7 MG/DL (0.00-0.3) H 02/02/20 02:02 Total Protein 6.3 g/dl (6.4-8.2) L 02/03/20 05:28 Albumin 3.3 g/dl (3.4-5.0) L 02/03/20 05:28 Lipase 67 U/L (73-393) L 02/02/20 02:02 Urine Color Yellow 02/03/20 23:25 Urine Appearance Clear 02/03/20 23:25 Urine pH 7.5 (5.0-8.0) D 02/03/20 23:25 Ur Specific [place] 1.004 (1.010-1.035) L 02/03/20 23:25 Urine Protein Negative (NEGATIVE) 02/03/20 23:25 Urine Glucose (UA) Negative (NEGATIVE) 02/03/20 23:25 Urine Ketones Negative (NEGATIVE) 02/03/20 23:25 Urine Blood Negative (NEGATIVE) 02/03/20 23:25 Urine Nitrite Negative (NEGATIVE) 02/03/20 23:25 Urine Bilirubin Negative (NEGATIVE) 02/03/20 23:25 Urine Urobilinogen 0.2 mg/dL (0.2-1.0) 02/03/20 23:25 Ur Leukocyte Esterase Negative (NEGATIVE) 02/03/20 23:25 COVID-19 (ANDRÉS) Not detected (Not Detected) 02/02/20 05:23 Active Medications Amlodipine Besylate (Norvasc -) 10 mg PO DAILY [facility] Last Admin: 02/07/20 10:02 Dose: 10 mg Documented by: Aspirin (Asa -) 81 mg PO DAILY [facility] Last Admin: 02/07/20 10:01 Dose: 81 mg Documented by: Baclofen (Lioresal -) 10 mg PO TID [facility] Last Admin: 02/07/20 14:29 Dose: 10 mg Documented by: Brimonidine Tartrate (Alphagan 0.2% -) 1 drop OU DAILY [facility] Last Admin: 02/07/20 10:03 Dose: 1 drop Documented by: Carbamazepine (Tegretol -) 600 mg PO DAILY [facility] Last Admin: 02/07/20 10:02 Dose: 600 mg Documented by: Carbamazepine (Tegretol -) 600 mg PO [facility] Docusate Sodium (Colace Liquid -) 200 mg PO DAILY PRN PRN Reason: CONSTIPATION Last Admin: 02/04/20 09:10 Dose: 200 mg Documented by: Enoxaparin Sodium (Lovenox -) 40 mg SQ DAILY [facility] Last Admin: 02/07/20 10:00 Dose: 40 mg Documented by: Fenofibric Acid (Trilipix -) 135 mg PO DAILY [facility] Last Admin: 02/07/20 10:00 Dose: 135 mg Documented by: Gabapentin 900 mg/ Gabapentin (100 mg) 1,000 mg PO TID [facility] Last Admin: 02/07/20 14:29 Dose: 1,000 mg Documented by: Hydromorphone HCl (Dilaudid Vial -) 0.5 mg IVPUSH Q3H PRN PRN Reason: PAIN LEVEL 7 - 10 Last Admin: 02/07/20 10:31 Dose: 0.5 mg Documented by: Dextrose/Sodium Chloride (D5-Ns -) 1,000 mls @ 83 mls/hr IV ASDIR [facility] Last Admin: 02/07/20 17:02 Dose: 83 mls/hr Documented by: Fosphenytoin Sodium 200 mg/ (Sodium Chloride) 104 mls @ 208 mls/hr IVPB BID [facility] Ibuprofen (Caldolor Injection -) 400 mg IVPB Q6H [facility] Stop: 02/08/20 09:29 Last Admin: 02/07/20 17:02 Dose: Not Given Documented by: Latanoprost (Xalatan 0.005% Eye Drops -) 1 drop OU HS [facility] Last Admin: 02/06/20 21:43 Dose: 1 drop Documented by: Metoprolol Succinate (Toprol Xl -) 12.5 mg PO DAILY [facility] Last Admin: 02/07/20 10:03 Dose: 12.5 mg Documented by: Timolol Maleate (Timoptic 0.5%) 1 drop OU DAILY [facility] Last Admin: 02/07/20 10:03 Dose: 1 drop Documented by: CXR 02/02 2 views of the chest reveal degenerative changes with wedging, weak inspiration, large heart, unfolded aorta and normal varinder. There is no sign of infiltrate or failure. The angles are sharp and the soft tissues are intact. There is a slight scoliosis with convexity to the right. Since 02/02/2020 the left base appears better aerated and an acute process is not seen. Correlation recommended. ASSESSMENT/PLAN: 69 year old F with PMH HTN and trigeminal neuralgia who presented to ED with dizziness and diplopia and worsening R-sided facial pain. Today, her facial pain has improved after receiving baclofen. Spoke to Dr. Martinez (neurosurgery from [place]) who will be accepting her to his service. Pending insurance authorization for transfer. Trigeminal Neuralgia - c/w carbamazepine 300 TID, increased gabapentin 1000 TID - s/p 10 mg dexamethasone w/o improvement of symptoms - Discussed case with Neuro. Recommended phenytoin 500 mg IV once then 200 mg IV BID. - c/w lidocaine gel TP - Pt is scheduled for future gamma knife surgery w/ neurosurgeon - c/w baclofen 10mg TID PRN and IV motrin PRN - start morphine IV Dizziness - Brain MRI ordered. Pt declined study due to pain. - Symptoms improved after decreasing dose of carbamazepine. Elevated troponin w/o EKG changes - Troponin down-trended. - echo done. Notable for mild Mitral annular calcification, mild MR, mild TR, mild-mod pulmonic valvular regurgitation. No pericardial effusion. - Will need stress test at some point. F/u as outpatient. Constipation - c/w colace Leukocytosis - resolved - CXR as above. HTN - c/w ASA, metoprolol, amlodipine FEN -NS @ 100 - Monitor and replete electrolytes - Full liquid diet Ppx -DVT: Lovenox Family discussion: Called son 3 times. No answer on phone. Dispo: Pending insurance authorization for transfer to [place] under the service of Dr. Martinez (neurosurgery). Pt will receive gamma knife surgery at some point. Visit type - Emergency Visit Emergency Visit: Yes ED Registration Date: 02/02/20 Care time: The patient presented to the Emergency Department on the above date and was hospitalized for further evaluation of their emergent condition. - New Patient This patient is new to me today: No - Critical Care Critical Care patient: No - Medication Review Med list reviewed for High Risk Meds patients 65 and older: Yes ATTENDING PHYSICIAN STATEMENT I saw and evaluated the patient. I reviewed the resident's note and discussed the case with the resident. I agree with the resident's findings and plan as documented. SUBJECTIVE: OBJECTIVE: ASSESSMENT AND PLAN:
[2020-02-07 19:11] VITALS: BP 148/62; PULSE 60; TEMP 98.1
[2020-02-07] MEDS: LATANOPROST 0.005% OPHTH SOLN 2.5ML BOTTLE OU SCH (21:31)
[2020-02-07] MEDS ORDERED: FOSPHENYTOIN SODIUM 100 MG in SODIUM CHLORIDE 100 ML IVPB SCH (22:00)
[2020-02-07] MEDS ORDERED: FOSPHENYTOIN SODIUM 200 MG in SODIUM CHLORIDE 100 ML IVPB SCH (22:00)
--- NOTE | 2020-02-08 08:36 | DS ---
Physical Exam: SUBJECTIVE: Pt continued to clutch the right side of her face, unable to speak. Pt is tearful, writing on paper "I need strong medicine". OBJECTIVE: Vital Signs Period Temp Pulse Resp BP Sys/Fofana Pulse Ox Last 24 Hr 98.1 F-98.3 F 59-68 20-20 137-165/62-83 99-100 PHYSICAL EXAM GENERAL: Alert. Clutching R side face. In acute distress. HEENT: NCAT, EOMI. Pupils reactive to light b/l. LUNGS: Equal breath sounds b/l. Clear to auscultation, no wheezes. HEART: Regular rate and rhythm. S1 and S2 present. No murmurs. ABDOMEN: Soft, non-distended, non-tender to palpation. Bowel sounds present. EXTREMITIES: Warm, well-perfused. NEUROLOGICAL: Sensation intact. Strength 5/5 b/l of UE and LE. Moving all extremities spontaneously. SKIN: No visible lesions seen. Warm, dry. LABS Laboratory Last Values WBC 6.9 K/mm3 (4.0-10.0) 02/05/20 06:20 RBC 4.21 M/mm3 (3.60-5.2) 02/05/20 06:20 Hgb 11.6 GM/dL (10.7-15.3) 02/05/20 06:20 Hct 35.2 % (32.4-45.2) 02/05/20 06:20 MCV 83.6 fl (80-96) 02/05/20 06:20 MCH 27.5 pg (25.7-33.7) 02/05/20 06:20 MCHC 32.9 g/dl (32.0-36.0) 02/05/20 06:20 RDW 13.5 % (11.6-15.6) 02/05/20 06:20 Plt Count 253 K/MM3 (134-434) 02/05/20 06:20 MPV 9.9 fl (7.5-11.1) 02/05/20 06:20 Absolute Neuts (auto) 4.1 K/mm3 (1.5-8.0) 02/04/20 06:33 Neutrophils % 58.1 % (42.8-82.8) D 02/04/20 06:33 Lymphocytes % 30.3 % (8-40) D 02/04/20 06:33 Monocytes % 9.5 % (3.8-10.2) 02/04/20 06:33 Eosinophils % 1.6 % (0-4.5) 02/04/20 06:33 Basophils % 0.5 % (0-2.0) 02/04/20 06:33 Nucleated RBC % 0 % (0-0) 02/04/20 06:33 Sodium 142 mmol/L (136-145) 02/07/20 05:27 Potassium 3.7 mmol/L (3.5-5.1) 02/07/20 05:27 Chloride 109 mmol/L (98-107) H 02/07/20 05:27 Carbon Dioxide 23 mmol/L (21-32) 02/07/20 05:27 Anion Gap 10 MMOL/L (8-16) 02/07/20 05:27 BUN 8.2 mg/dL (7-18) 02/07/20 05:27 Creatinine 0.7 mg/dL (0.55-1.3) 02/07/20 05:27 Est GFR (CKD-EPI)AfAm 102.46 02/07/20 05:27 Est GFR (CKD-EPI)NonAf 88.40 02/07/20 05:27 Random Glucose 98 mg/dL (74-106) 02/07/20 05:27 Calcium 8.7 mg/dL (8.5-10.1) 02/07/20 05:27 Phosphorus 3.0 mg/dL (2.5-4.9) 02/04/20 06:33 Magnesium 1.7 mg/dL (1.8-2.4) L 02/04/20 06:33 Iron 50 ug/dL (50-175) 02/02/20 02:02 TIBC 341 ug/dL (250-450) 02/02/20 02:02 Iron Saturation 14 % (17.5-39) L 02/02/20 02:02 Unsaturated IBC 291 ug/dL (200-275) H 02/02/20 02:02 Ferritin 329.9 ng/ml (8-388) 02/02/20 02:02 Total Bilirubin 0.5 mg/dL (0.2-1) 02/03/20 05:28 AST 27 U/L (15-37) 02/03/20 05:28 ALT 33 U/L (13-61) 02/03/20 05:28 Alkaline Phosphatase 136 U/L (45-117) H 02/03/20 05:28 LD Total 253 U/L (84-246) H 02/02/20 02:02 Creatine Kinase 89 U/L (26-192) 02/02/20 11:08 Troponin I 0.10 ng/ml (0.00-0.05) H 02/02/20 11:08 C-Reactive Protein 0.7 MG/DL (0.00-0.3) H 02/02/20 02:02 Total Protein 6.3 g/dl (6.4-8.2) L 02/03/20 05:28 Albumin 3.3 g/dl (3.4-5.0) L 02/03/20 05:28 Lipase 67 U/L (73-393) L 02/02/20 02:02 Urine Color Yellow 02/03/20 23:25 Urine Appearance Clear 02/03/20 23:25 Urine pH 7.5 (5.0-8.0) D 02/03/20 23:25 Ur Specific [place] 1.004 (1.010-1.035) L 02/03/20 23:25 Urine Protein Negative (NEGATIVE) 02/03/20 23:25 Urine Glucose (UA) Negative (NEGATIVE) 02/03/20 23:25 Urine Ketones Negative (NEGATIVE) 02/03/20 23:25 Urine Blood Negative (NEGATIVE) 02/03/20 23:25 Urine Nitrite Negative (NEGATIVE) 02/03/20 23:25 Urine Bilirubin Negative (NEGATIVE) 02/03/20 23:25 Urine Urobilinogen 0.2 mg/dL (0.2-1.0) 02/03/20 23:25 Ur Leukocyte Esterase Negative (NEGATIVE) 02/03/20 23:25 COVID-19 (ANDRÉS) Not detected (Not Detected) 02/02/20 05:23 HOSPITAL COURSE: 69 year old F with PMH HTN and trigeminal neuralgia who presented to ED with dizziness and diplopia and worsening R-sided facial pain. CT head and facial bones showed no acute pathology or fractures. Neurology consulted and decreased carbamazepine, which improved pt's dizziness and diplopia. However, pt's pain persisted despite optimizing medication. Spoke to Dr. Martinez (neurosurgery from [place]) who is familiar with pt's condition. Due to the severity of pt's symptoms, decision made to emergently transfer pt to his service. Pt accepted by Dr. Martinez at [place] for gamma knife surgery and further management. Date of Admission:02/02/20 Date of Discharge: 02/07/20 Minutes to complete discharge: 36 Discharge Summary Problems reviewed: Yes Reason For Visit: NON-ST ELEVATION MYOCARDIAL INFRACTION (NSTEMI) Condition: Stable - Instructions Disposition: TRANSFER ACUTE CARE/OTHER HOSP - Home Medications Comprehensive Discharge Medication List: Ambulatory Orders Oxycodone HCl/Acetaminophen [Percocet 5-325 mg Tablet] 1 tab PO Q4H PRN 10/13/16 Amlodipine Besylate 10 mg PO DAILY 11/27/16 Brimonidine Tartrate/Timolol [Combigan 0.2%-0.5% Eye Drops] 1 drop OU HS 02/02/20 Carbamazepine 600 mg PO DAILY 02/02/20 Carbamazepine 600 mg PO HS 02/02/20 Gabapentin 300 mg PO Q8H 02/02/20 Travoprost 1 drop OU HS 02/02/20 Carbamazepine 300 mg PO DAILY@1900 02/03/20 Fenofibrate,Micronized [Fenofibrate] 130 mg PO DAILY 02/03/20 This patient is new to me today: No Emergency Visit: Yes ED Registration Date: 02/02/20 Care time: The patient presented to the Emergency Department on the above date and was hospitalized for further evaluation of their emergent condition. Critical Care patient: No - Discharge Referral Referred to [facility] Med P.C.: No ATTENDING PHYSICIAN STATEMENT I saw and evaluated the patient. I reviewed the resident's note and discussed the case with the resident. I agree with the resident's findings and plan as documented. SUBJECTIVE: OBJECTIVE: ASSESSMENT AND PLAN:
--- NOTE | 2020-02-08 19:06 | PN ---
Teaching Attending Note Name of Resident: Yael Dominguez ATTENDING PHYSICIAN STATEMENT I saw and evaluated the patient. I reviewed the resident's note and discussed the case with the resident. I agree with the resident's findings and plan as documented. SUBJECTIVE: Patient continues to have severe facial pain, right side OBJECTIVE: Vital Signs Temperature 98.1 F 02/07/20 18:00 Pulse Rate 60 02/07/20 18:00 Respiratory Rate 20 02/07/20 21:00 Blood Pressure 148/62 02/07/20 18:00 O2 Sat by Pulse Oximetry (%) 100 02/07/20 21:00 PE;per resident's note CBCD WBC 6.9 K/mm3 (4.0-10.0) 02/05/20 06:20 RBC 4.21 M/mm3 (3.60-5.2) 02/05/20 06:20 Hgb 11.6 GM/dL (10.7-15.3) 02/05/20 06:20 Hct 35.2 % (32.4-45.2) 02/05/20 06:20 MCV 83.6 fl (80-96) 02/05/20 06:20 MCHC 32.9 g/dl (32.0-36.0) 02/05/20 06:20 RDW 13.5 % (11.6-15.6) 02/05/20 06:20 Plt Count 253 K/MM3 (134-434) 02/05/20 06:20 MPV 9.9 fl (7.5-11.1) 02/05/20 06:20 CMP Sodium 142 mmol/L (136-145) 02/07/20 05:27 Potassium 3.7 mmol/L (3.5-5.1) 02/07/20 05:27 Chloride 109 mmol/L (98-107) H 02/07/20 05:27 Carbon Dioxide 23 mmol/L (21-32) 02/07/20 05:27 Anion Gap 10 MMOL/L (8-16) 02/07/20 05:27 BUN 8.2 mg/dL (7-18) 02/07/20 05:27 Creatinine 0.7 mg/dL (0.55-1.3) 02/07/20 05:27 Random Glucose 98 mg/dL (74-106) 02/07/20 05:27 Calcium 8.7 mg/dL (8.5-10.1) 02/07/20 05:27 Total Bilirubin 0.5 mg/dL (0.2-1) 02/03/20 05:28 AST 27 U/L (15-37) 02/03/20 05:28 ALT 33 U/L (13-61) 02/03/20 05:28 Alkaline Phosphatase 136 U/L (45-117) H 02/03/20 05:28 Total Protein 6.3 g/dl (6.4-8.2) L 02/03/20 05:28 Albumin 3.3 g/dl (3.4-5.0) L 02/03/20 05:28 CARDIAC ENZYMES Creatine Kinase 89 U/L (26-192) 02/02/20 11:08 Troponin I 0.10 ng/ml (0.00-0.05) H 02/02/20 11:08 Home Medications Medication Instructions Recorded Oxycodone HCl/Acetaminophen 1 tab PO Q4H PRN 10/13/16 [Percocet 5-325 mg Tablet] Amlodipine Besylate 10 mg PO DAILY 11/27/16 Brimonidine Tartrate/Timolol 1 drop OU HS 02/02/20 [Combigan 0.2%-0.5% Eye Drops] Carbamazepine 600 mg PO DAILY 02/02/20 Carbamazepine 600 mg PO HS 02/02/20 Gabapentin 300 mg PO Q8H 02/02/20 Travoprost 1 drop OU HS 02/02/20 Carbamazepine 300 mg PO DAILY@1900 02/03/20 Fenofibrate,Micronized 130 mg PO DAILY 02/03/20 [Fenofibrate] Head Ct: negative Facial BONE: no fx or acute bony abnormalities. ASSESSMENT AND PLAN: This patient is a 69yof with Pmhx of HTN , trigeminal neuralgia who presented with dizziness, diplopia and R sided facial pain. # Severe trigeminal neuralgia: CONTINUE carbamazepine 300 TID , cont neurontin increased the dose to 1k tid ,added Phenytoin as per neurologist , added motrin IV 400mg q6h, Dexamethasone given but did not help , added morphine IV, Lidocaine gel topical, called Dr. Martinez's office again; for transfer to [facility] , patient is accepted to [facility] will be transfer when ok by the insurance company. # dizziness, tremors, and diplopia: improved ; likely due to carbamazepine. dose decreased , MRI: patient is refusing since she has severe pain. #elevated trop: most likely demand ischemia; cont ASa, toprol , echo reviewed: EJF 60-65%, mild to moderate pulmonic valvular regurgitation, Mild MR, mild TR, stress test at some point once stable and her pain is controlled better. # Mild leukocytosis . resolved . no signs of infection # HTN : cont home norvasc at 10 mg and toprol. No orthostatic hypotension DVT px: Lovenox increased the dose of gabapentin to 1k tid , added IV morphine , standing dose motrin IV Patient is transferred to [facility] for right gamma knife surgery
== END 2020-02-07 23:15 | disposition short-term general hospital (02) | DRG 74 ==
LOC: JER 22:15 → JERBED 02-02 02:48 → J4W 02-02 09:22
PROVIDERS: ADMIT Student in an Organized Health Care Education/Training Program; ATTEND Internal Medicine
DX: G50.0 Trigeminal neuralgia (principal); I24.8 Other forms of acute ischemic heart disease; T15.92XA Foreign body on external eye, part unspecified, left eye, initial encounter; E86.1 Hypovolemia; H53.2 Diplopia; I10 Essential (primary) hypertension; D72.829 Elevated white blood cell count, unspecified; I11.9 Hypertensive heart disease without heart failure; T42.1X5A Adverse effect of iminostilbenes, initial encounter; K59.00 Constipation, unspecified; R42 Dizziness and giddiness; X58.XXXA Exposure to other specified factors, initial encounter; Y93.9 Activity, unspecified; Y92.89 Other specified places as the place of occurrence of the external cause; Y99.9 Unspecified external cause status
CPT/HCPCS: 36415; 70450-TC; 70486-TC; 71045-TC-FY; 71046-TC-FY; 80048; 80053; 81003; 82550; 82728; 83540; 83550; 83615; 83690; 83735; 84100; 84484; 85025; 85027; 86140; 93005; 93010; 93306-TC; 99285-25; J0131; J0475; U0003